=== PATIENT | male | born 1950 | race Caucasian/White ===

== ENCOUNTER 2022-11-26 19:31 | Emergency (ER) | payer MEDICARE, MEDICAID, SELFPAY ==
[2022-11-26 19:33] VITALS: BP 118/60; PULSE 78; RESP 20; TEMP 36.6; O2SAT 92; BMI 23.1
--- NOTE | 2022-11-26 19:36 | CT_ITS ---
[address] [address] Patient Name: JERMAINE JAMES MRN: [id number] date: 1950 Sex: M Assigned Patient Location: ER Current Patient Location: [facility] Accession/Order Number: [id number] Exam Date: 11/26/2022 19:40 Report Date: 11/26/2022 21:32 At the request of: LASHELL CRUZ Procedure: CT head/brain wo con EXAM: CT head/brain wo con, CT cervical spine wo con; [id number], [id number] REASON FOR EXAM: fall, head injury COMPARISON: CT head and C-spine 10/29/2022. TECHNIQUE: Axial CT images of the head obtained without contrast. Following this, helical CT images of the cervical spine were obtained without contrast. Multiplanar reformats generated at the scanner. Dose reduction technique used: Automated exposure control and/or adjustment of the mA and/or kV according to patient size and/or use of iterative reconstruction technique. HEAD CT FINDINGS: Parenchyma: -Moderate generalized cerebral volume loss. -No midline shift or mass effect. Basilar cisterns are patent. -No acute intracranial hemorrhage. No loss of cortical velarde-white differentiation to indicate acute cortical infarct. -Moderate multifocal and bilateral periventricular white matter predominant hypoattenuation, nonspecific though commonly seen in the setting of chronic microvascular ischemic disease. Extra-axial spaces: Within expected limits given degree of cerebral volume loss. Ventricles: Normal in size and symmetric. Paranasal sinuses: Chronic sinusitis of the left maxillary sinus. Partial opacification of bilateral ethmoid air cells. Mastoid air cells: Visualized mastoids are clear. Orbits: Visualized orbits are within normal limits. Osseous: No acute findings. Soft tissues: No acute abnormality. CERVICAL SPINE FINDINGS: Osseous: -No acute fracture or traumatic spondylolisthesis. -Severe spondylosis and severe bilateral facet arthropathy throughout the cervical spine. -No suspicious osseous lesion. Paraspinous soft tissues: -No acute abnormality. Visualized lung apices: -Clear. -No pneumothorax within the [id number]. IMPRESSION: 1. No acute intracranial abnormality. 2. No acute traumatic abnormality of the cervical spine. Electronically authenticated by: KOKI DE SANTIAGO Date: 11/26/2022 21:32
--- NOTE | 2022-11-26 19:36 | CT_ITS ---
The [address] [address] Patient Name: JERMAINE JAMES MRN: [id number] date: 1950 Sex: M Assigned Patient Location: ED.MAIN Current Patient Location: ED.MAIN Accession/Order Number: [id number] Exam Date: 11/26/2022 19:40 Report Date: 11/26/2022 21:32 At the request of: LASHELL CRUZ Procedure: CT cervical spine wo con EXAM: CT head/brain wo con, CT cervical spine wo con; [id number], [id number] REASON FOR EXAM: fall, head injury COMPARISON: CT head and C-spine 10/29/2022. TECHNIQUE: Axial CT images of the head obtained without contrast. Following this, helical CT images of the cervical spine were obtained without contrast. Multiplanar reformats generated at the scanner. Dose reduction technique used: Automated exposure control and/or adjustment of the mA and/or kV according to patient size and/or use of iterative reconstruction technique. HEAD CT FINDINGS: Parenchyma: -Moderate generalized cerebral volume loss. -No midline shift or mass effect. Basilar cisterns are patent. -No acute intracranial hemorrhage. No loss of cortical velarde-white differentiation to indicate acute cortical infarct. -Moderate multifocal and bilateral periventricular white matter predominant hypoattenuation, nonspecific though commonly seen in the setting of chronic microvascular ischemic disease. Extra-axial spaces: Within expected limits given degree of cerebral volume loss. Ventricles: Normal in size and symmetric. Paranasal sinuses: Chronic sinusitis of the left maxillary sinus. Partial opacification of bilateral ethmoid air cells. Mastoid air cells: Visualized mastoids are clear. Orbits: Visualized orbits are within normal limits. Osseous: No acute findings. Soft tissues: No acute abnormality. CERVICAL SPINE FINDINGS: Osseous: -No acute fracture or traumatic spondylolisthesis. -Severe spondylosis and severe bilateral facet arthropathy throughout the cervical spine. -No suspicious osseous lesion. Paraspinous soft tissues: -No acute abnormality. Visualized lung apices: -Clear. -No pneumothorax within the [id number]. IMPRESSION: 1. No acute intracranial abnormality. 2. No acute traumatic abnormality of the cervical spine. Electronically authenticated by: KOKI DE SANTIAGO Date: 11/26/2022 21:32
--- NOTE | 2022-11-26 19:36 | XR_ITS ---
[place] [id number] Patient Name: JERMAINE JAMES MRN: [id number] date: 1950 Sex: M Assigned Patient Location: ER Current Patient Location: ER Accession/Order Number: [id number] Exam Date: 11/26/2022 19:40 Report Date: 11/26/2022 21:34 At the request of: LASHELL CRUZ Procedure: XR knee KENN 4V STUDY: XR knee KENN 4V, [id number] HISTORY: pain s/p fall COMPARISON: None FINDINGS: No acute fracture, dislocation, or suspicious osseous lesion. Severe osteoarthritis of both knees, left greater than right. Status post ORIF of the left distal femur. No significant effusion in either knee. IMPRESSION: No acute osseous abnormality. Electronically authenticated by: KOKI DE SANTIAGO Date: 11/26/2022 21:34
--- NOTE | 2022-11-26 19:59 | ED_ITS ---
Documented by User: KRANTHI Garcia 11/26/22 20:04 HPI - General Adult General Chief complaint: Fall Stated complaint: FALL Time Seen by Provider: 11/26/22 19:36 Source: caregiver Mode of arrival: ambulance Limitations: no limitations History of Present Illness HPI narrative: Patient is a 72-year-old male presents to the Emergency Room via EMS for evaluation of right knee pain and possible head injury. Patient presents from skilled facility where he is in a dementia unit. The facility staff notes that he is acting at his baseline but believe he had a fall around dinnertime str iking his right knee. Patient has various bruises noted to the bilateral knees and forehead with appears to be a new deepthi on the forehead from recent fall. No open skin or bleeding. Patient talkative foreign c-collar in no distress. Alert to name. Related Data Home Medications Medication Instructions Recorded Confirmed acetaminophen 500 mg capsule 1,000 mg PO Q4H PRN fever or pain 11/26/22 11/26/22 atorvastatin 10 mg tablet (Lipitor) 10 mg PO DAILY 11/26/22 11/26/22 buspirone 30 mg tablet 30 mg PO BID 11/26/22 11/26/22 clomipramine 50 mg capsule 50 mg PO BID 11/26/22 11/26/22 (Anafranil) divalproex 500 mg tablet,delayed 500 mg PO BID 11/26/22 11/26/22 release (Depakote) duloxetine 20 mg capsule,delayed 20 mg PO DAILY 11/26/22 11/26/22 release duloxetine 30 mg capsule,delayed 30 mg PO DAILY 11/26/22 11/26/22 release (Cymbalta) hyoscyamine sulfate 0.125 mg 0.125 mg PO Q6H 11/26/22 11/26/22 tablet (Levsin) levetiracetam 1,000 mg tablet 1,000 mg PO BID 11/26/22 11/26/22 (Keppra) lorazepam 1 mg tablet 1 mg PO Q8H PRN anxiety 11/26/22 11/26/22 losartan 50 mg tablet (Cozaar) 50 mg PO DAILY 11/26/22 11/26/22 lumateperone 42 mg capsule 42 mg PO DAILY 11/26/22 11/26/22 (Caplyta) morphine 20 mg/5 mL (4 mg/mL) oral 7.5 mg PO Q6H PRN pain 11/26/22 11/26/22 solution pantoprazole 40 mg tablet,delayed 40 mg PO DAILY 11/26/22 11/26/22 release (Protonix) sertraline 100 mg tablet (Zoloft) 100 mg PO DAILY 11/26/22 11/26/22 Allergies Allergy/AdvReac Type Severity Reaction Status Date / Time No Known Drug Allergies Allergy Verified 11/26/22 19:39 Review of Systems ROS Narrative Unable to assess with patient's history of dementia Status of ROS unobtainable due to mental status Exam Narrative Exam Narrative: Nurses note and vital signs reviewed and patient is not hypoxic. General: The patient appears well and in no apparent distress. Patient is resting comfortably on cart. C-collar present Skin: Warm, dry, no pallor noted. Transverse abrasion to forehead without evidence of bleeding. Minimal swelling Head: Normocephalic, atraumatic Neck: Supple, trachea mid-line, no tenderness, no lymphadenopathy. Full ROM and no cervical spinal tenderness. The patient has no step-offs or crepitus noted, c-collar well fitting Eyes: PERRLA, EOMI ENT: TM's clear, no hemotympanum detected, no blood in posterior oropharynx Cardiovascular: Regular Rate and Rhythm Respiratory: Patient is in no distress, no accessory muscle use, lungs are clear to auscultation, no wheezing, rales or rhonchi Chest Wall: no tenderness, no flail chest, contusion, abrasion, or signs of trauma. Back: Back has no evidence of trauma, including contusion, abrasion, swelling or ecchymosis. The patient had no evidence of step-offs or creptitace noted. No tenderness to palpation. Negative straight leg raise bilaterally. Musculoskeletal: normal ROM, tenderness noted to the right anterior knee, mild bruising noted, symmetric bruising noted to the left anterior knee. Patient demonstrates fairly painless passive range of motion with straight leg raise intact bilaterally , no hip pain noted., no swelling. Pulses at femoral, DP, PT, and popiteal were 2+ bilaterally. Moves all four extremities in all modalities with roughly 5/5 strength. Difficulty assessing true strength with patient following commands GI: Normal bowel sounds, no tenderness to palpation, no masses appreciated. No rebound, guarding, or rigidity noted. Neurological: A&O person , normal equal inspector multifocal lens strength, Psychiatric: Cooperative Constitutional Vital Signs - 24 hr 11/26/22 19:33 Temperature 97.8 F Pulse Rate [Monitor] 78 Respiratory Rate 20 Blood Pressure [Right Arm] 118/60 Pulse Oximetry 92 L Oxygen Delivery Method Room Air Course Vital Signs Vital signs: Vital Signs Temperature 97.8 F 11/26/22 19:33 Pulse Rate 78 11/26/22 19:33 Respiratory Rate 20 11/26/22 19:33 Blood Pressure 118/60 11/26/22 19:33 Pulse Oximetry 92 L 11/26/22 19:33 Oxygen Delivery Method Room Air 11/26/22 19:33 Temperature 97.8 F 11/26/22 19:33 Pulse Rate 78 11/26/22 19:33 Respiratory Rate 20 11/26/22 19:33 Blood Pressure 118/60 11/26/22 19:33 Pulse Oximetry 92 L 11/26/22 19:33 Oxygen Delivery Method Room Air 11/26/22 19:33 Medical Decision Making [facility] Narrative Medical decision making narrative: Patient presents via EMS for skilled facility's concern of right knee pain. Patient has various bruising to the bilateral knees noted, bruising noted to the forearm with what appears to be a fresh transverse marker abrasion. No open skin wound. No report of recent illness or fever. No mention of any seizure-like activity. Patient will undergo CT of the head and C-spine, along with bilateral knee x-rays. Discharge Plan Discharge Chief Complaint: Fall Clinical Impression: Closed head injury, Contusion of knee, left, Contusion of knee, right Patient Disposition: Home, Self-Care Time of Disposition Decision: 21:40 Prescriptions / Home Meds: No Action acetaminophen 500 mg capsule 1,000 mg PO Q4H PRN (Reason: fever or pain) clomipramine [Anafranil] 50 mg capsule 50 mg PO BID buspirone 30 mg tablet 30 mg PO BID Caplyta 42 mg capsule 42 mg PO DAILY Patient Comments: M,,W,,Sun,Sat losartan [Cozaar] 50 mg tablet 50 mg PO DAILY duloxetine [Cymbalta] 30 mg capsule,delayed release(DR/EC) 30 mg PO DAILY divalproex [Depakote] 500 mg tablet,delayed release (DR/EC) 500 mg PO BID duloxetine 20 mg capsule,delayed release(DR/EC) 20 mg PO DAILY levetiracetam [Keppra] 1,000 mg tablet 1,000 mg PO BID hyoscyamine sulfate [Levsin] 0.125 mg tablet 0.125 mg PO Q6H atorvastatin [Lipitor] 10 mg tablet 10 mg PO DAILY lorazepam 1 mg tablet 1 mg PO Q8H PRN (Reason: anxiety) morphine 20 mg/5 mL (4 mg/mL) solution 7.5 mg PO Q6H PRN (Reason: pain) pantoprazole [Protonix] 40 mg tablet,delayed release (DR/EC) 40 mg PO DAILY sertraline [Zoloft] 100 mg tablet 100 mg PO DAILY Instructions: Head Injury (ED), Knee Pain (ED) Stand Alone Forms: Portal Instructions Referrals: [facility] [Other] - 1 week Documented by User: Ernesto Acevedo 11/26/22 21:42 HPI - General Adult General Chief complaint: Fall Stated complaint: FALL Time Seen by Provider: 11/26/22 19:36 Related Data Home Medications Medication Instructions Recorded Confirmed acetaminophen 500 mg capsule 1,000 mg PO Q4H PRN fever or pain 11/26/22 11/26/22 atorvastatin 10 mg tablet (Lipitor) 10 mg PO DAILY 11/26/22 11/26/22 buspirone 30 mg tablet 30 mg PO BID 11/26/22 11/26/22 clomipramine 50 mg capsule 50 mg PO BID 11/26/22 11/26/22 (Anafranil) divalproex 500 mg tablet,delayed 500 mg PO BID 11/26/22 11/26/22 release (Depakote) duloxetine 20 mg capsule,delayed 20 mg PO DAILY 11/26/22 11/26/22 release duloxetine 30 mg capsule,delayed 30 mg PO DAILY 11/26/22 11/26/22 release (Cymbalta) hyoscyamine sulfate 0.125 mg 0.125 mg PO Q6H 11/26/22 11/26/22 tablet (Levsin) levetiracetam 1,000 mg tablet 1,000 mg PO BID 11/26/22 11/26/22 (Keppra) lorazepam 1 mg tablet 1 mg PO Q8H PRN anxiety 11/26/22 11/26/22 losartan 50 mg tablet (Cozaar) 50 mg PO DAILY 11/26/22 11/26/22 lumateperone 42 mg capsule 42 mg PO DAILY 11/26/22 11/26/22 (Caplyta) morphine 20 mg/5 mL (4 mg/mL) oral 7.5 mg PO Q6H PRN pain 11/26/22 11/26/22 solution pantoprazole 40 mg tablet,delayed 40 mg PO DAILY 11/26/22 11/26/22 release (Protonix) sertraline 100 mg tablet (Zoloft) 100 mg PO DAILY 11/26/22 11/26/22 Allergies Allergy/AdvReac Type Severity Reaction Status Date / Time No Known Drug Allergies Allergy Verified 11/26/22 19:39 Exam Constitutional Vital Signs - 24 hr 11/26/22 19:33 Temperature 97.8 F Pulse Rate [Monitor] 78 Respiratory Rate 20 Blood Pressure [Right Arm] 118/60 Pulse Oximetry 92 L Oxygen Delivery Method Room Air Course Vital Signs Vital signs: Vital Signs Temperature 97.8 F 11/26/22 19:33 Pulse Rate 78 11/26/22 19:33 Respiratory Rate 20 11/26/22 19:33 Blood Pressure 118/60 11/26/22 19:33 Pulse Oximetry 92 L 11/26/22 19:33 Oxygen Delivery Method Room Air 11/26/22 19:33 Temperature 97.8 F 11/26/22 19:33 Pulse Rate 78 11/26/22 19:33 Respiratory Rate 20 11/26/22 19:33 Blood Pressure 118/60 11/26/22 19:33 Pulse Oximetry 92 L 11/26/22 19:33 Oxygen Delivery Method Room Air 11/26/22 19:33 Medical Decision Making MDM Narrative Medical decision making narrative: Patient presents via EMS for skilled facility's concern of right knee pain. Patient has various bruising to the bilateral knees noted, bruising noted to the forearm with what appears to be a fresh transverse marker abrasion. No open skin wound. No report of recent illness or fever. No mention of any seizure-like activity. Patient will undergo CT of the head and C-spine, along with bilateral knee x-rays. attending physician note - I saw and examined this patient and agree with the APCs findings. CT scanning of the head and cervical spine were without acute pathology, per radiologist. X-rays of both knees were reviewed by me and the radiologist's interpretation agrees with my which is that there is no acute fracture or other worrisome pathology. Patient was discharged back to the [facility]. - Sujit DO For this patient encounter I reviewed the mid-level provider?s documentation, m edical decision-making and treatment plan, and I personally spent time with this patient. Shared APC visit, physician attestation: [id number]: This visit was performed by both a physician and an APC. I personally evaluated and examined the patient. I performed all aspects of MDM as documented. - DO Sujit Imaging Data CT scan - head: My impression: ct head and ct cspine rad reading noted below Radiologist's impression: Patient Name: JERMAINE JAMES MRN: [id number] date: 1950 Sex: M Assigned Patient Location: ER Current Patient Location: ED.MAIN Accession/Order Number: [id number] Exam Date: 11/26/2022 19:40 Report Date: 11/26/2022 21:32 At the request of: LASHELL CRUZ Procedure: CT head/brain wo con EXAM: CT head/brain wo con, CT cervical spine wo con; [id number], [id number] REASON FOR EXAM: fall, head injury COMPARISON: CT head and C-spine 10/29/2022. TECHNIQUE: Axial CT images of the head obtained without contrast. Following this, helical CT images of the cervical spine were obtained without contrast. Multiplanar reformats generated at the scanner. Dose reduction technique used: Automated exposure control and/or adjustment of the mA and/or kV according to patient size and/or use of iterative reconstruction technique. HEAD CT FINDINGS: Parenchyma: -Moderate generalized cerebral volume loss. -No midline shift or mass effect. Basilar cisterns are patent. -No acute intracranial hemorrhage. No loss of cortical velarde-white differentiation to indicate acute cortical infarct. -Moderate multifocal and bilateral periventricular white matter predominant hypoattenuation, nonspecific though commonly seen in the setting of chronic microvascular ischemic disease. Extra-axial spaces: Within expected limits given degree of cerebral volume loss. Ventricles: Normal in size and symmetric. Paranasal sinuses: Chronic sinusitis of the left maxillary sinus. Partial opacification of bilateral ethmoid air cells. Mastoid air cells: Visualized mastoids are clear. Orbits: Visualized orbits are within normal limits. Osseous: No acute findings. Soft tissues: No acute abnormality. CERVICAL SPINE FINDINGS: Osseous: -No acute fracture or traumatic spondylolisthesis. -Severe spondylosis and severe bilateral facet arthropathy throughout the cervical spine. -No suspicious osseous lesion. Paraspinous soft tissues: -No acute abnormality. Visualized lung apices: -Clear. -No pneumothorax within the [id number]. IMPRESSION: 1. No acute intracranial abnormality. 2. No acute traumatic abnormality of the cervical spine. Electronically authenticated by: KOKI DE SANTIAGO Date: 11/26/2022 21:32 xr knee: Attestation: I have reviewed the pertinent imaging results. Radiologist's impression: MRN: [facility]:[id number] date: 1950 Sex: M Assigned Patient Location: ER Current Patient Location: ER Accession/Order Number: [id number] Exam Date: 11/26/2022 19:40 Report Date: 11/26/2022 21:34 At the request of: LASHELL CRUZ Procedure: XR knee KENN 4V STUDY: XR knee KENN 4V, [id number] HISTORY: pain s/p fall COMPARISON: None FINDINGS: No acute fracture, dislocation, or suspicious osseous lesion. Severe osteoarthritis of both knees, left greater than right. Status post ORIF of the left distal femur. No significant effusion in either knee. IMPRESSION: No acute osseous abnormality. Electronically authenticated by: KOKI DE SANTIAGO Date: 11/26/2022 21:34 Discharge Plan Discharge Chief Complaint: Fall Clinical Impression: Closed head injury, Contusion of knee, left, Contusion of knee, right Patient Disposition: Home, Self-Care Time of Disposition Decision: 21:40 Prescriptions / Home Meds: No Action acetaminophen 500 mg capsule 1,000 mg PO Q4H PRN (Reason: fever or pain) clomipramine [Anafranil] 50 mg capsule 50 mg PO BID buspirone 30 mg tablet 30 mg PO BID Caplyta 42 mg capsule 42 mg PO DAILY Patient Comments: M,,W,,Sun,Sat losartan [Cozaar] 50 mg tablet 50 mg PO DAILY duloxetine [Cymbalta] 30 mg capsule,delayed release(DR/EC) 30 mg PO DAILY divalproex [Depakote] 500 mg tablet,delayed release (DR/EC) 500 mg PO BID duloxetine 20 mg capsule,delayed release(DR/EC) 20 mg PO DAILY levetiracetam [Keppra] 1,000 mg tablet 1,000 mg PO BID hyoscyamine sulfate [Levsin] 0.125 mg tablet 0.125 mg PO Q6H atorvastatin [Lipitor] 10 mg tablet 10 mg PO DAILY lorazepam 1 mg tablet 1 mg PO Q8H PRN (Reason: anxiety) morphine 20 mg/5 mL (4 mg/mL) solution 7.5 mg PO Q6H PRN (Reason: pain) pantoprazole [Protonix] 40 mg tablet,delayed release (DR/EC) 40 mg PO DAILY sertraline [Zoloft] 100 mg tablet 100 mg PO DAILY Instructions: Head Injury (ED), Knee Pain (ED) Stand Alone Forms: Portal Instructions Referrals: [facility] [Other] - 1 week
== END 2022-11-26 22:59 | disposition home or self-care (01) ==
PROVIDERS: Emergency Provider Emergency Medicine
DX: S80.02XA Contusion of left knee, initial encounter (principal); S80.01XA Contusion of right knee, initial encounter; S09.8XXA Other specified injuries of head, initial encounter; W19.XXXA Unspecified fall, initial encounter; Z79.899 Other long term (current) drug therapy; F03.90 Unspecified dementia, unspecified severity, without behavioral disturbance, psychotic disturbance, mood disturbance, and anxiety
CPT/HCPCS: 70450; 72125; 73564; 99284

== ENCOUNTER 2023-01-20 21:59 | Emergency (ER) | payer MEDICARE, MEDICAID, SELFPAY ==
[2023-01-20 22:03] VITALS: BP 136/84; PULSE 88; RESP 18; TEMP 36.2; O2SAT 97
--- NOTE | 2023-01-20 22:05 | PC.NURSE ---
patient arrives via EMS from [facility]. nursing staff states patient was sitting at nurses station with patient and nurse walked away when she returned patient was in the same position unchanged but she noticed a laceration above left eyebrow. patient does not take blood thinners. patient with history of dementia, nursing staff states patient is at his baseline mental status. patient arrives pleasant, talking to RN, laceration wrapped by EMS staff with no active bleeding observed at this time.
--- NOTE | 2023-01-20 22:09 | ED.WOUNDLAC1 ---
HPI - Wound/Laceration General Chief Complaint: Wound/Laceration Stated Complaint: FACIAL LACERATION Time Seen by Provider: 01/20/23 22:09 Source: patient and other Source comment: squad Mode of arrival: ambulance History of Present Illness HPI narrative: Patient brought in via EMS closed head injury. Patient had a not witnessed fall at the [facility]. He sustained a left frontal laceration. Patient has a history of dementia and frequent falls. Does not take any blood thinners. The patient is at his baseline. Patient does not have any complaints. Patient has not been vomiting, denies any diarrhea. He denies any chest, shortness of breath. He denies any neck pain. He denies any abdominal pain or back pain. Related Data Home Medications Medication Instructions Recorded Confirmed acetaminophen 500 mg capsule 1,000 mg PO Q4H PRN fever or pain 11/26/22 11/26/22 atorvastatin 10 mg tablet (Lipitor) 10 mg PO DAILY 11/26/22 11/26/22 buspirone 30 mg tablet 30 mg PO BID 11/26/22 11/26/22 clomipramine 50 mg capsule 50 mg PO BID 11/26/22 11/26/22 (Anafranil) divalproex 500 mg tablet,delayed 500 mg PO BID 11/26/22 11/26/22 release (Depakote) duloxetine 20 mg capsule,delayed 20 mg PO DAILY 11/26/22 11/26/22 release duloxetine 30 mg capsule,delayed 30 mg PO DAILY 11/26/22 11/26/22 release (Cymbalta) hyoscyamine sulfate 0.125 mg 0.125 mg PO Q6H 11/26/22 11/26/22 tablet (Levsin) levetiracetam 1,000 mg tablet 1,000 mg PO BID 11/26/22 11/26/22 (Keppra) lorazepam 1 mg tablet 1 mg PO Q8H PRN anxiety 11/26/22 11/26/22 losartan 50 mg tablet (Cozaar) 50 mg PO DAILY 11/26/22 11/26/22 lumateperone 42 mg capsule 42 mg PO DAILY 11/26/22 11/26/22 (Caplyta) morphine 20 mg/5 mL (4 mg/mL) oral 7.5 mg PO Q6H PRN pain 11/26/22 11/26/22 solution pantoprazole 40 mg tablet,delayed 40 mg PO DAILY 11/26/22 11/26/22 release (Protonix) sertraline 100 mg tablet (Zoloft) 100 mg PO DAILY 11/26/22 11/26/22 Allergies Allergy/AdvReac Type Severity Reaction Status Date / Time No Known Drug Allergies Allergy Verified 01/20/23 22:08 Review of Systems ROS Status of ROS 10 or more systems reviewed and unremarkable except as noted in history and below [facility] Social History Smoking status: Former smoker Exam Narrative Exam Narrative: Nurses notes and vital signs reviewed and patient is not hypoxic. General: Nontoxic, Elderly, chronically ill, in no apparent distress. Skin: Warm, dry, mild pallor noted. No Rash Head: Normocephalic, 2 cm left eyebrow laceration with 2 mm of gaping, no active bleeding. No step-offs. Neck: Supple, non-tender. Eye: Pupils are equal, round and EOMI. No scleral icterus. Ears, Nose, Mouth, and Throat: TM clear, no posterior oropharynx erythema or nasal mucosal hypertrophy, uvula is mid-line Oral mucosa is moist Cardiovascular: Regular Rate and Rhythm without murmur, gallop or rub. Respiratory: No accessory muscle use or respiratory distress. Lungs are clear to auscultation, no wheezing, rales or rhonchi Chest Wall: no tenderness Back: No midline thoracic or lumbar vertebral tenderness. No CVA tenderness Musculoskeletal: 1 cm skin. To the left lateral elbow, full range of motion, no bony tenderness. Distal neurovascularly intact. normal ROM, no calf or popliteal tenderness, no lower extremity edema/swelling GI: Abdomen is soft, non-distended. Normal bowel sounds. No masses appreciated. No tenderness to palpation. No rebound, guarding, or rigidity noted. Neurological: A&O x1. No cranial nerve dysfunction observed. Moves all extremities. Sensation intact. Psychiatric: Cooperative Constitutional Vital Signs, click to edit/add: Last Vital Signs Temp 97.1 F L 01/20/23 22:03 Pulse 76 01/21/23 00:25 Resp 16 01/21/23 00:25 BP 136/84 01/20/23 22:03 Pulse Ox 97 01/21/23 00:25 O2 Del Method Room Air 01/20/23 22:03 Course Vital Signs Vital signs: Vital Signs Temperature 97.1 F L 01/20/23 22:03 Pulse Rate 88 01/20/23 22:03 Respiratory Rate 18 01/20/23 22:03 Blood Pressure 136/84 01/20/23 22:03 Pulse Oximetry 97 01/20/23 22:03 Oxygen Delivery Method Room Air 01/20/23 22:03 Temperature 97.1 F L 01/20/23 22:03 Pulse Rate 76 01/21/23 00:25 Respiratory Rate 16 01/21/23 00:25 Blood Pressure 136/84 01/20/23 22:03 Pulse Oximetry 97 01/21/23 00:25 Oxygen Delivery Method Room Air 01/20/23 22:03 MDM - Wound/Laceration MDM Narrative Medical decision making narrative: CT scan of the brain and C-spine were done and are unremarkable. Laceration repair. The patient was identified by me. Procedure risks and benefits were discussed with patient and/or family. Area was prepped and draped in a sterile fashion. wound was inspected in full range of motion. Dermabond was applied with Steri-Strips. The edges were well approximated. At this time the patient is without objective evidence of an acute process requiring hospitalization or inpatient management. The patient has remained hemodynamically stable. No additional indication for emergent studies at this time. This note was created with the assistance of a speech recognition program. Although the intention is to generate documents that actually reflects the content of the visit, no guarantees can be provided that every mistake has been identified and corrected by editing. Differential Diagnosis Differential diagnosis: Likely laceration Discharge Plan Discharge Chief Complaint: Wound/Laceration Clinical Impression: Closed head injury, Skin tear of left elbow without complication, Laceration of eyebrow, left Patient Disposition: Home, Self-Care Time of Disposition Decision: 00:05 Condition: Good Mode of Transportation: EMS Prescriptions / Home Meds: No Action acetaminophen 500 mg capsule 1,000 mg PO Q4H PRN (Reason: fever or pain) clomipramine [Anafranil] 50 mg capsule 50 mg PO BID buspirone 30 mg tablet 30 mg PO BID Caplyta 42 mg capsule 42 mg PO DAILY Patient Comments: M,,W,Th,Fri,Sat losartan [Cozaar] 50 mg tablet 50 mg PO DAILY duloxetine [Cymbalta] 30 mg capsule,delayed release(DR/EC) 30 mg PO DAILY divalproex [Depakote] 500 mg tablet,delayed release (DR/EC) 500 mg PO BID duloxetine 20 mg capsule,delayed release(DR/EC) 20 mg PO DAILY levetiracetam [Keppra] 1,000 mg tablet 1,000 mg PO BID hyoscyamine sulfate [Levsin] 0.125 mg tablet 0.125 mg PO Q6H atorvastatin [Lipitor] 10 mg tablet 10 mg PO DAILY lorazepam 1 mg tablet 1 mg PO Q8H PRN (Reason: anxiety) morphine 20 mg/5 mL (4 mg/mL) solution 7.5 mg PO Q6H PRN (Reason: pain) pantoprazole [Protonix] 40 mg tablet,delayed release (DR/EC) 40 mg PO DAILY sertraline [Zoloft] 100 mg tablet 100 mg PO DAILY Instructions: Head Injury (ED), Skin Adhesive Care (ED), Steristrips (ED) Stand Alone Forms: Portal Instructions
--- NOTE | 2023-01-20 22:30 | CT_ITS ---
The [address] [address] Patient Name: JERMAINE JAMES MRN: [id number] date: 1950 Sex: M Assigned Patient Location: ER Current Patient Location: ER Accession/Order Number: [id number] Exam Date: 01/20/2023 22:40 Report Date: 01/20/2023 23:48 At the request of: RAINE WALTERS Procedure: CT head/brain wo con EXAMINATION: CT head/brain wo con, , 01/20/2023 10:40 PM EDT INDICATION: Laceration to the left upper eye HISTORY: Ordering Provider Reason for Exam: chi Technologist Note: Additional: COMPARISON: Head CT dated 11/26/2022. TECHNIQUE: CT scan of the head was performed without IV contrast. CT dose reduction technique was used, including Automated Exposure Control. FINDINGS: Proportionate appearance of the ventricles and sulci is seen, suggestive of cortical atrophy. Mild degree nonspecific white matter hypoattenuation is seen, which can be seen with chronic microvascular ischemic changes. No extra-axial collection. No intracranial hemorrhage. No mass effect or edema. No CT evidence of large territorial infarction. Visualized paranasal sinuses are well aerated. Mastoids are clear. Calvarium is unremarkable. Left supraorbital/forehead soft tissue swelling is seen with small subcutaneous gas consistent with reported laceration. CT/CT head/brain wo con IMPRESSION: No intracranial hemorrhage or mass effect. Left supraorbital/forehead soft tissue swelling is seen with small subcutaneous gas consistent with reported laceration. Electronically authenticated by: NGOC SZYMANSIK Date: 01/20/2023 23:48
--- NOTE | 2023-01-20 22:31 | CT_ITS ---
The [address] [address] Patient Name: JERMAINE JAMES MRN: [id number] date: 1950 Sex: M Assigned Patient Location: ER Current Patient Location: Accession/Order Number: [id number] Exam Date: 01/20/2023 22:40 Report Date: 01/20/2023 23:56 At the request of: RAINE WALTERS Procedure: CT cervical spine wo con EXAM: CT cervical spine wo con HISTORY: fall COMPARISON: CT cervical spine examination dated 11/26/2022. TECHNIQUE: Noncontrast axial CT images through the cervical spine were obtained with coronal and sagittal reformats. Dose reduction techniques were achieved by using automated exposure control and/or adjustment of mA and/or kV according to patient size and/or use of iterative reconstruction technique. FINDINGS: An incidental note is made of incomplete fusion of the posterior arch of C1. No acute fracture or subluxation is seen. The vertebral body heights are preserved. There is approximately 2 mm of C5 on C6 retrolisthesis which is felt to be due to degenerative changes. Otherwise, the vertebral elements are in anatomic alignment. The prevertebral soft tissues are unremarkable. There is advanced degenerative disc disease at C2-C3, C4-C5, C5-C6, C6-C7, and C7-T1. There are multilevel degenerative changes including endplate osteophytes, degenerative facet arthropathy, and uncovertebral hypertrophy. There is at least mild right neural foraminal narrowing at C3-C4 secondary to uncovertebral hypertrophy and degenerative facet arthropathy. There is severe left neural foraminal narrowing at C4-C5 secondary to uncovertebral hypertrophy and degenerative facet arthropathy. There is moderate bilateral neural foraminal narrowing at C5-C6 secondary to uncovertebral hypertrophy. There is moderate to severe left and mild right neural foraminal narrowing at C6-C7 secondary to uncovertebral hypertrophy. There does not appear to be any significant spinal canal stenosis. Bilateral cervical ribs are noted. CT/CT cervical spine wo con IMPRESSION: 1. No acute fracture or subluxation of the cervical spine is seen. Electronically authenticated by: Jinny WASHINGTON Date: 01/20/2023 23:56
[2023-01-21 00:25] VITALS: PULSE 76; RESP 16; O2SAT 97
== END 2023-01-21 02:08 | disposition home or self-care (01) ==
PROVIDERS: Emergency Provider Emergency Medicine
DX: S01.112A Laceration without foreign body of left eyelid and periocular area, initial encounter (principal); S09.8XXA Other specified injuries of head, initial encounter; S51.012A Laceration without foreign body of left elbow, initial encounter; W19.XXXA Unspecified fall, initial encounter; F03.90 Unspecified dementia, unspecified severity, without behavioral disturbance, psychotic disturbance, mood disturbance, and anxiety; Z91.81 History of falling; Z79.899 Other long term (current) drug therapy; Z87.891 Personal history of nicotine dependence
CPT/HCPCS: 12011; 70450; 72125; 99284

== ENCOUNTER 2023-11-06 09:28 | Emergency (ER) | payer MEDICARE, MEDICAID, SELFPAY ==
--- NOTE | 2023-11-06 09:30 | XR_ITS ---
The [address] [address] Patient Name: JERMAINE JAMES MRN: [id number] date: 1950 Sex: M Assigned Patient Location: ED.MAIN Current Patient Location: ED.MAIN Accession/Order Number: [id number] Exam Date: 11/06/2023 09:52 Report Date: 11/06/2023 10:16 At the request of: LESTER DENISE Procedure: XR knee LT 3V PROCEDURE: XR knee LT 3V HISTORY: trauma , fall COMPARISON: XR knee bilateral 11/26/2022 FINDINGS: BONES:Prior lateral plate and screw repair of distal fibula without evidence of hardware fracture loosening. No bone fracture dislocation. Marked degenerative changes involving all 3 joint compartments. SOFT TISSUES:No visible soft tissue swelling. EFFUSION:None visible. OTHER: Negative. XR/XR knee LT 3V IMPRESSION: 1. No acute bone abnormality or evidence of hardware failure. 2. Advanced degenerative joint disease. Electronically authenticated by: SAPPHIRE DILLARD Date: 11/06/2023 10:16
--- NOTE | 2023-11-06 09:30 | CT_ITS ---
The [address] [address] Patient Name: JERMAINE JAMES MRN: [id number] date: 1950 Sex: M Assigned Patient Location: ED.MAIN Current Patient Location: Accession/Order Number: [id number] Exam Date: 11/06/2023 09:52 Report Date: 11/06/2023 10:22 At the request of: LESTER DENISE Procedure: CT head/brain wo con EXAM: CT head/brain wo con HISTORY: trauma history of fall. COMPARISON: CT head 01/20/2023. TECHNIQUE: Axial soft tissue and bone windows through the calvarium with coronal and sagittal reformats. Findings: No depressed or calvarial fracture. There is complete opacification the left maxillary sinus with adjacent chronic osseous remodeling. There is mild opacification anterior ethmoid air cells. The remainder of the paranasal sinuses and mastoid air cells are well aerated. No air-fluid levels. No extra-axial fluid collection. No intra-axial or extra-axial bleed. No mass effect or midline shift. The velarde-white matter differentiation is preserved. There are white matter low attenuation lesions which are nonspecific but commonly attributed to chronic small vessel ischemic disease. The brain parenchymal volume is mildly reduced, yet likely age-appropriate, and there is ex vacuo dilatation of the ventricles. The basal cisterns are patent. The craniovertebral junction is unremarkable. CT/CT head/brain wo con IMPRESSION: 1. No depressed or calvarial fracture. 2. No acute intracranial bleed. Electronically authenticated by: JESÚS CEE Date: 11/06/2023 10:22
[2023-11-06 09:31] VITALS: BP 126/64; PULSE 83; TEMP 36.7; O2SAT 98; BMI 28.0
--- NOTE | 2023-11-06 09:32 | ED_ITS ---
HPI HPI - General Adult General Chief complaint: Fall Stated complaint: FALL Time Seen by Provider: 11/06/23 09:30 History of Present Illness HPI narrative: Patient presents to ED after a fall. He comes from [facility] for evaluation after a fall this morning around 8:45 AM. long term reports that he fell and it was unwitnessed but he seemed to have hit his head and there is a small red deepthi on the top of his head. They also report for about the past week he has had a more unsteady gait Than normal. He is also had a little bit more slurring of his speech than normal. He is a DNR comfort care and oriented to self which is his baseline. He does not have any complaints of pain at this time. He fell about a week ago and hurt his left knee which is bruised and the usp states that he has continued to complain about that knee pain. He was also on Xanax and they have been weaning that down in case that was making him more unsteady on his feet. They said he just has not been quite himself for the past week walking more slowly and then today they thought his speech seemed a little bit slurred Related Data Home Medications ?Medication ?Instructions ?Recorded ?Confirmed acetaminophen 500 mg capsule 1,000 mg PO Q4H PRN fever or pain 11/26/22 11/26/22 atorvastatin 10 mg tablet (Lipitor) 10 mg PO DAILY 11/26/22 11/26/22 buspirone 30 mg tablet 30 mg PO BID 11/26/22 11/26/22 clomipramine 50 mg capsule 50 mg PO BID 11/26/22 11/26/22 (Anafranil) divalproex 500 mg tablet,delayed 500 mg PO BID 11/26/22 11/26/22 release (Depakote) duloxetine 20 mg capsule,delayed 20 mg PO DAILY 11/26/22 11/26/22 release duloxetine 30 mg capsule,delayed 30 mg PO DAILY 11/26/22 11/26/22 release (Cymbalta) hyoscyamine sulfate 0.125 mg 0.125 mg PO Q6H 11/26/22 11/26/22 tablet (Levsin) levetiracetam 1,000 mg tablet 1,000 mg PO BID 11/26/22 11/26/22 (Keppra) lorazepam 1 mg tablet 1 mg PO Q8H PRN anxiety 11/26/22 11/26/22 losartan 50 mg tablet (Cozaar) 50 mg PO DAILY 11/26/22 11/26/22 lumateperone 42 mg capsule 42 mg PO DAILY 11/26/22 11/26/22 (Caplyta) morphine 20 mg/5 mL (4 mg/mL) oral 7.5 mg PO Q6H PRN pain 11/26/22 11/26/22 solution pantoprazole 40 mg tablet,delayed 40 mg PO DAILY 11/26/22 11/26/22 release (Protonix) sertraline 100 mg tablet (Zoloft) 100 mg PO DAILY 11/26/22 11/26/22 Allergies Allergy/AdvReac Type Severity Reaction Status Date / Time No Known Drug Allergies Allergy Verified 01/20/23 22:08 Opioid HPI Opioid Management Most Recent Opioid Data: Last Pain Scale 3 11/06/23 10:03 Last ED Pain Assessment 11/06/23 10:03 Review of Systems ROS Status of ROS other (ROS unable to obtain due to history of dementia) PFSH [facility] Social History Smoking status: Former smoker Exam Narrative Exam Narrative: General: alert, no acute distress, Baseline dementia alert to self only Cardiovascular: regular rate and rhythm, normal peripheral perfusion. Respiratory: Lungs CTA, respirations non labored. Extremities: no deformity, Old ecchymosis left knee. No tenderness on exam Neurological: oriented x 1, LOC appropriate for age And dementia hx Constitutional Vital Signs, click to edit/add: Last Vital Signs Temp 98.1 F 11/06/23 09:31 Pulse 83 11/06/23 09:31 Resp 18 11/06/23 09:31 BP 126/64 11/06/23 09:31 Pulse Ox 98 11/06/23 09:31 O2 Del Method Room Air 11/06/23 09:31 Course Vital Signs Vital signs: Vital Signs Temperature 98.1 F 11/06/23 09:31 Pulse Rate 83 11/06/23 09:31 Respiratory Rate 18 11/06/23 09:31 Blood Pressure 126/64 11/06/23 09:31 Pulse Oximetry 98 11/06/23 09:31 Oxygen Delivery Method Room Air 11/06/23 09:31 Temperature 98.1 F 06/04/24 09:31 Pulse Rate 83 11/06/23 09:31 Respiratory Rate 18 11/06/23 09:31 Blood Pressure 126/64 11/06/23 09:31 Pulse Oximetry 98 11/06/23 09:31 Oxygen Delivery Method Room Air 11/06/23 09:31 Medical Decision Making MDM Narrative Medical decision making narrative: Patient's knee x-ray is negative for acute. CT head negative for acute. Patient is at his baseline mentation. I feel he is appropriate to go back to his facility. Family not present at bedside at this time. Patient will be transported back to his facility Differential Diagnosis Differential Diagnosis: Intracranial hemorrhage, stroke, contusion fracture sprain strain Medical Records Medical records reviewed: Yes I reviewed the patient's medical records Imaging Data CT scan - head: Radiologist's impression: ITS Impressions Head CT 11/06/23 09:30 IMPRESSION: 1. No depressed or calvarial fracture. 2. No acute intracranial bleed. Electronically authenticated by: JESÚS CEE Date: 11/06/2023 10:22 Knee X-Ray 11/06/23 09:30 IMPRESSION: 1. No acute bone abnormality or evidence of hardware failure. 2. Advanced degenerative joint disease. Electronically authenticated by: SAPPHIRE DILLARD Date: 11/06/2023 10:16 Discharge Plan Discharge Stand Alone Forms: Portal Instructions Chief Complaint: Fall Clinical Impression: Closed head injury, Contusion of knee, left Patient Disposition: Home, Self-Care Time of Disposition Decision: 10:29 Mode of Transportation: EMS Prescriptions / Home Meds: No Action acetaminophen 500 mg capsule 1,000 mg PO Q4H PRN (Reason: fever or pain) clomipramine [Anafranil] 50 mg capsule 50 mg PO BID buspirone 30 mg tablet 30 mg PO BID Caplyta 42 mg capsule 42 mg PO DAILY Patient Comments: M,,W,Th,Fri,Sat losartan [Cozaar] 50 mg tablet 50 mg PO DAILY duloxetine [Cymbalta] 30 mg capsule,delayed release(DR/EC) 30 mg PO DAILY divalproex [Depakote] 500 mg tablet,delayed release (DR/EC) 500 mg PO BID duloxetine 20 mg capsule,delayed release(DR/EC) 20 mg PO DAILY levetiracetam [Keppra] 1,000 mg tablet 1,000 mg PO BID hyoscyamine sulfate [Levsin] 0.125 mg tablet 0.125 mg PO Q6H atorvastatin [Lipitor] 10 mg tablet 10 mg PO DAILY lorazepam 1 mg tablet 1 mg PO Q8H PRN (Reason: anxiety) morphine 20 mg/5 mL (4 mg/mL) solution 7.5 mg PO Q6H PRN (Reason: pain) pantoprazole [Protonix] 40 mg tablet,delayed release (DR/EC) 40 mg PO DAILY sertraline [Zoloft] 100 mg tablet 100 mg PO DAILY Print Language: Czech Instructions: Head Injury (ED), Contusion in Adults (ED) Referrals: Physician,Non-Staff, MD [Primary Care Provider] - 1 week
== END 2023-11-06 12:17 | disposition home or self-care (01) ==
PROVIDERS: Emergency Provider Emergency Medicine
DX: S09.8XXA Other specified injuries of head, initial encounter (principal); S80.02XA Contusion of left knee, initial encounter; W19.XXXA Unspecified fall, initial encounter; Z79.899 Other long term (current) drug therapy; Z66 Do not resuscitate
CPT/HCPCS: 70450; 73562; 99284

== ENCOUNTER 2023-11-13 09:25 | Emergency (ER) | payer MEDICARE, MEDICAID, SELFPAY ==
[2023-11-13 09:27] VITALS: BP 166/86; PULSE 87; TEMP 37.1; O2SAT 98; BMI 20.3
--- NOTE | 2023-11-13 09:32 | PC.NURSE ---
patient from [facility]. staff reports patient choked on grits this morning, not first time per staff, and they struck him on the back until he vomited up the grits. patient noted to be coughing, patient has baseline dementia, only oriented to self sometimes per staff. patient unable to follow directions to spit out what he is coughing up. EMS states patient had oxygen saturation of 97% upon their arrival to facility. Security at bedside to help keep patient redirected to stay in bed as he is continually attempting to get out.
--- NOTE | 2023-11-13 09:33 | XR_ITS ---
The [address] [address] Patient Name: JERMAINE JAMES MRN: [id number] date: 1950 Sex: M Assigned Patient Location: ED.MAIN Current Patient Location: ER Accession/Order Number: [id number] Exam Date: 11/13/2023 09:48 Report Date: 11/13/2023 10:18 At the request of: MITZY DUVALL Procedure: XR chest 1V EXAM: XR chest 1V HISTORY: Shortness of breath. COMPARISON: Portable chest radiograph dated 08/02/2022. TECHNIQUE: AP erect portable chest radiograph performed. FINDINGS: The heart size is within normal limits. There is stable mild atheromatous calcification at the aortic arch. Hilar shadows are unremarkable. There is mild patchy density at both lung bases suggesting atelectasis and/or infiltrate. There is no pleural effusion or pulmonary vascular congestion. There is no pneumothorax or acute osseous abnormality. There are chronic tears of both rotator cuffs. XR/XR chest 1V IMPRESSION: Mild patchy density at both lung bases suggesting atelectasis and/or infiltrates. Electronically authenticated by: RUBY CHU Date: 11/13/2023 10:18
--- OUTSIDE RECORDS SUMMARY | 2023-11-13 09:52 | XMS_ITS | CCD ---
Author Organization [facility] Care Team Providers Care Machine Compositor Name Role Phone ELIF, PERLAS Admitting Unavailable RENNO, ANAS Attending Unavailable SELF, REFERRED Referring Unavailable SELF, REFERRED Primary Care Unavailable RENENRICO, ANAS Surgeon Unavailable OR Procedure Practitioner Unavailab le OR Procedure Practitioner Unavailab le JOSE RAMON OSCAR Surgeon Unavailable Virginia MAHARAJ Attending Unavailable ROMEO ., RAINE Admitting Unavailable LANE RAMIREZ Consulting Unavailable VALONE, DR GEORGES Primary Care Unavailable ROMEO ., RAINE Attending Unavailable ROMEO ., RAINE Consulting Unavailable VALONE, DR GEORGES Consulting Unavailable VALONE, DR GEORGES Primary Care Unavailable VALONE, DR GEORGES Admitting Unavailable VALONE, DR GEORGES Attending Unavailable TIANNA, DR LANE Mcguire Consulting Unavailable VALONE, DR GEORGES Primary Care Unavailable BRYANT, ROYAL Admitting Unavailable BRYANT, ROYAL Attending Unavailable BRYANT, ROYAL Consulting Unavailable BRYANT, ROYAL Admitting Unavailable BRYANT, ROYAL Attending Unavailable BRYANT, ROYAL Consulting Unavailable VALONE, DR GEORGES Primary Care Unavailable VIRGINIA FLOYD Consulting Unavailable Problems Active Problems Problem Classification Problem Date Documented Da te Episodic/Chronic Delirium, dementia, and amnestic and other cognitive disorders (4 sources) Unspecified dementia without behavioral disturbance; Translations: [Alzheimer's disease, unspecified] Onset: 12-15-2021 Chronic E Codes: Fall (1 source) Unspecified fall, initial encounter; Translations: [UNSPECIFIED FALL INITIAL ENCOUNTER] Onset: 10-31-2022 Episodic Epilepsy; convulsions (1 source) Epilepsy, unspecified, not intractable, without status epilepticus; Translations: [EPILEPSY UNS NOT INTRACT W/O SE] Onset: 08-04-2022 Chronic Essential hypertension (1 source) Essential (primary) hypertension; Translations: [ESSENTIAL PRIMARY HYPERTENSION] Onset: 12-15-2021 Chronic Other aftercare (1 source) Other senior living (current) drug therapy; Translations: [OTH SHELTER CURRENT DRUG THERAPY] Onset: 10-31-2022 Episodic Other injuries and conditions due to external causes (4 sources) Unspecified injury of head, initial encounter; Translations: [UNSPECIFIED INJURY HEAD INITIAL ENC] Onset: 10-29-2022 Episodic Residual codes; unclassified (1 source) Do not resuscitate; Translations: [DO NOT RESUSCITATE] Onset: 10-31-2022 Episodic Spondylosis; intervertebral disc disorders; other back problems (4 sources) Spondylosis without myelopathy or radiculopathy, cervical region; Translations: [SPONDYLS W/O MYELO-/RADICULOP CERV] Onset: 12-13-2021 Chronic Substance-related disorders (1 source) Nicotine dependence, cigarettes, uncomplicated; Translations: [NICOTINE DEPEND CIGARETTES UNCOMP] Onset: 10-31-2022 Chronic Past or Other Problems Problem Classification Problem Date Documented Da te Episodic/Chronic Abdominal pain (4 sources) Unspecified abdominal pain; Translations: [UNSPECIFIED ABDOMINAL PAIN] Onset: 07-11-2022 Episodic Conditions associated with dizziness or vertigo (1 source) Dizziness and giddiness; Translations: [DIZZINESS AND GIDDINESS] Onset: 12-15-2021 Episodic Fluid and electrolyte disorders (1 source) Dehydration; Translations: [DEHYDRATION] Onset: 08-04-2022 Episodic Gastrointestinal hemorrhage (1 source) Melena; Translations: [MELENA] Onset: 07-13-2022 Episodic Residual codes; unclassified (4 sources) Altered mental status, unspecified; Translations: [ALTERED MENTAL STATUS UNSPECIFIED] Onset: 08-02-2022 Episodic Screening and history of mental health and substance abuse codes (1 source) Personal history of nicotine dependence; Translations: [PERSONAL HISTORY OF NICOTINE DEPEND] Onset: 07-13-2022 Episodic Results Test Name Value Interpretation Reference Range Facility CT CSPINE WO CONon 3 CT CSPINE WO CON INDICATION: 72 years old; Male. Right forehead hematoma. 2 falls today. Confusion although this finding is described as being consistent with patient's normal mental status. TECHNIQUE: CT Head (ax/cor/sag reformats). Ionizing radiation dose reduced via iterative reconstruction/FBP blend and body size kV/mA adjustment. Comparison: Head CT dated 12/13/2021. FINDINGS: POSTOPERATIVE CHANGES: None. BRAIN PARENCHYMA: No focal lesions. No mass effect. No midline shift or herniation. No intraparenchymal or extra-axial hemorrhage. Patchy and confluent low-density throughout the white matter consistent with small vessel ischemic change. VENTRICLES/EXTRA-AXIAL SPACES: Enlarged, consistent with atrophy. SINUSES/MASTOIDS: There is opacification of left maxillary sinus. Cyst or polyp formation is present in the maxillary sinus on the right. Mastoid air cells are clear. MSK: Allowing for motion artifacts, no fracture or bony displacement is appreciated. There is extracranial soft tissue swelling in the supraorbital region and frontal region on the right. No subjacent bony abnormality is noted. OTHER: No hyperdense intraluminal thrombus is seen. Vascular calcifications are noted. TECHNIQUE: CT imaging of the cervical spine was performed. IV contrast: None. Dose reduction techniques were achieved by using automated exposure control and/or adjustment of mA and/or kV according to patient size and/or use of iterative reconstruction technique. COMPARISON: Cervical CT dated 12/13/2021. FINDINGS: POSTOPERATIVE CHANGES: None. ALIGNMENT: Nonspecific straightening of the normal cervical curve. COMPRESSION FRACTURES: No fracture or vertebral body collapse is seen. No bony displacement is seen. There are bulky bridging anterior osteophytes noted extending from C3 through the upper thoracic spine consistent with DISH. 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 PREVERTEBRAL SOFT TISSUES: Displacement of the prevertebral soft tissue secondary to the large osteophytes. The airway is patent. CRANIOCERVICAL JUNCTION: There is a normal relationship of the occipital condyles, lateral masses of C1, and articular surfaces of C2. The base of the dens and body of C2 are intact. There is loss of the normal predental space with wptr-zq-azgt appearance associated with sclerosis and spurring arising from the dens and the anterior arch of C1. There is thickening and calcification of the transverse ligament. This narrows the CSF space anterior to the cord. POSTERIOR FOSSA: Cerebellar tonsils are above the foramen magnum. There is narrowing of the CSF space anterior the cord due to transverse ligament thickening. Disc levels: C2-C3: Partial bony trabeculation across the disc space. Disc bulging and endplate osteophyte formation. Facet degeneration. Bony canal is patent. C3-C4: Bulky bridging anterior osteophyte formation. Disc osteophyte complex centrally. Mild central canal stenosis. Bilateral facet degeneration with bony overgrowth worse on the right. Neural foramina patent. C4-C5: Disc space narrowing with deaf-iv-mzxf appearance associated with endplate sclerosis and cystic changes. Bulky bridging anterior osteophyte formation. Facet degeneration, worse on the left than the right. Mild central canal stenosis. Mild left-sided foraminal stenosis. C5-C6: Disc space narrowing with pwaq-mi-whsv appearance associated with endplate cystic changes. Uncovertebral joint degeneration and facet degeneration. Bulky bridging anterior osteophyte formation. Mild central canal stenosis. Mild bilateral foraminal stenosis. C6-C7: Disc space narrowing with wmfe-od-ffiv appearance associated with endplate sclerosis and cystic changes. Bulky bridging anterior osteophyte formation with pseudoarthrosis between the osteophytes arising from C6 and C7. Uncovertebral joint degeneration is noted. Mild central canal stenosis. Moderate left and mild right foraminal stenosis. C7-T1: Disc space narrowing with bulky bridging anterior osteophyte formation. Central canal and neural foramina patent. UPPER THORACIC SPINE: Not included in this examination. OTHER: No thyroid nodule or adenopathy. IMPRESSION: 1. No acute intracranial abnormality. No hemorrhage or mass effect. 2. Small vessel ischemic changes. 3. Atrophy. 4. Vascular calcification. 5. No acute cervical fracture is seen. There is diffuse cervical spondylosis with DISH. 6. Extra cranial soft tissue swelling in the supraorbital region on the right. Electronically authenticated by: VIRGINIA FLOYD Date: 2022-10-29 01:39 Normal [facility] LEVETIRACETAM, SERUM OR PLAS MAon 08-04-2022 Levetiracetam, S 16.6 ug/mL Normal 10.0-40.0 [facility] Comment on above: Performed By: #### K EPPRA ####[facility] [id number] [place], [place] [address]VwDr. Minal Whatley BNPon 08-02-2022 Natriuretic peptide B (Bld) [Mass/Vol] 382.0 pg/mL Normal <=900.0 [facility] Comment on above: Performed By: #### C MADM, BNP, CMP #### [facility] [address] [place], [place] [address] Dr. Minal Whatley CARDIAC GURJIT ADMITon 023 CK [Catalytic activity/Vol] 89 U/L Normal 39-308 [facility] Comment on above: Performed By: #### C MADM, BNP, CMP #### [facility] [address] [place] [address] [address] Minal Whatley CK.MB [Mass/Vol] 1.34 ng/mL Normal <=3.60 [facility] Comment on above: Performed By: #### C MADM, BNP, CMP #### [facility] [address] [place] [address] [address] Minal Whatley HSTROP 9.2 pg/mL Normal 4.0-76.1 [facility] Comment on above: Result Comment: CUT- OFF POINTS HAVE BEEN ESTABLISHED BASED ON THE FOURTH UNIVERSAL DEFINITIONS OF MYOCARDIAL INFARCTION. THE UPPER REFERENCE LIMIT (URL) OF TROPONIN, DEFINED THE 99TH PERCENTILE OF cTnI DISTRIBUTION IN A REFERENCE POPULATION, HAS BEEN CONFIRMED THE DECISION THRESHOLD FOR ND DIAGNOSIS. Performed By: #### C MADM, BNP, CMP #### [facility] [address] [place] [address] [address] Minal Whatley LILIA 139 ng/mL Critically high 16-96 [facility] Comment on above: Performed By: #### C MADM, BNP, CMP #### [facility] [address] [place] [address] [address] Minal Whatley CBC AUTO DIFFon 08-02-2022 BASO # 0.1 103/ul Normal 0.0-0.1 [facility] Comment on above: Performed By: #### C BC #### [facility] [address] [place] [address] [address] Minal Whatley Basophils/100 WBC (Bld) 0.7 % Normal 0.2-2.0 [facility] Comment on above: Performed By: #### C BC #### [facility] [address] [place] [address] [address] Minal Whatley EO # 0.1 103/ul Normal 0.0-0.7 [facility] Comment on above: Performed By: #### C BC #### [facility] [address] [place] [address] [address] Minal Whatley Eosinophils/100 WBC (Bld) 1.8 % Normal 0.9-7.0 [facility] Comment on above: Performed By: #### C BC #### [facility] [address] [place] [address] Dr. Minal Whatley Erythrocyte distribution width (RBC) [Ratio] 12.4 % Normal 11.0-15.0 [facility] Comment on above: Performed By: #### C BC #### [facility] [address] [place] [address] Dr. Minal Whatley Hematocrit (Bld) [Volume fraction] 42.5 % Normal 42.0-54.0 [facility] Comment on above: Performed By: #### C BC #### [facility] [address] [place] [address] Dr. Minal Whatley Hemoglobin (Bld) [Mass/Vol] 14.3 g/dL Normal 14.0-18.0 [facility] Comment on above: Performed By: #### C BC #### [facility] [address] [place] [address] Dr. Minal Whatley IG # 0.03 10e3/ul Normal 0.00-0.03 [facility] Comment on above: Performed By: #### C BC #### [facility] [address] [place] [address] Dr. Minal Whatley IG % 0.4 % Normal 0.0-0.5 [facility] Comment on above: Performed By: #### C BC #### [facility] [address] [place] [address] Dr. Minal Whatley LYMPH # 1.0 103/ul Critically low 1.2-3.[address] [facility] Comment on above: Performed By: #### C BC #### [facility] [address] [place] [address] Dr. Minal Whatley Lymphocytes/100 WBC (Bld) 13.2 % Critically low 20.5-60.0 [facility] Comment on above: Performed By: #### C BC #### [facility] [address] [place] [address] Dr. Minal Whatley MANUAL DIFF REQ NO Normal [facility] Comment on above: Performed By: #### C BC #### [facility] [address] [address] [address] Minal Whatley MCH (RBC) [Entitic mass] 32.0 pg Normal 25.9-34.0 [facility] Comment on above: Performed By: #### C BC #### [facility] [address] [address] [address] Minal Whatley MCHC (RBC) [Mass/Vol] 33.6 g/dL Normal 29.9-35.2 [facility] Comment on above: Performed By: #### C BC #### [facility] [address] [address] [address] Minal Whatley MCV (RBC) [Entitic vol] 95.1 fL Critically high 80.0-94.0 [facility] Comment on above: Performed By: #### C BC #### [facility] [address] [place] [address] Dr. Minal Whatley MONO # 0.9 103/ul Critically high 0.3-0.8 [facility] Comment on above: Performed By: #### C BC #### [facility] [address] [address] [address] Minal Whatley Monocytes/100 WBC (Bld) 12.2 % Critically high 1.7-12.0 [facility] Comment on above: Performed By: #### C BC #### [facility] [address] [place] [address] Dr. Minal Whatley NEUT # 5.2 103/ul Normal 1.4-6.5 [facility] Comment on above: Performed By: #### C BC #### [facility] [address] [place] [address] Dr. Minal Whatley Neutrophils/100 WBC (Bld) 71.7 % Normal 43.0-75.0 [facility] Comment on above: Performed By: #### C BC #### [facility] [address] [place] [address] Dr. Minal Whatley Platelet mean volume (Bld) [Entitic vol] 9.6 fL Normal 9.5-13.5 [facility] Comment on above: Performed By: #### C BC #### [facility] [address] [address] [address] Minal Whatley PLT 173 103/ul Normal 150-450 [facility] Comment on above: Performed By: #### C BC #### [facility] [address] [place] [address] [address] Minal Whatley RBC 4.47 106/ul Critically low 4.70-6.10 [facility] Comment on above: Performed By: #### C BC #### [facility] [address] [place] [address] [address] Minal Whatley WBC 7.3 103/ul Normal 4.0-11.0 [facility] Comment on above: Performed By: #### C BC #### [facility] [address] [place] [address] [address] Minal Whatley ER URINE PROFILEon 3 Bilirubin Ql (U) MODERATE Abnormal NEGATIVE [facility] Comment on above: Performed By: #### U MICRO, ERUR ####[facility] [id number] [place], [place] [address]Dr. Minal Whatley Clarity (U) CLEAR Normal CLEAR [facility] Comment on above: Performed By: #### U MICRO, ERUR ####[facility] [address] [place] [address]Dr. Minal Whatley Color (U) DK. YELLOW Normal YELLOW [facility] Comment on above: Performed By: #### U MICRO, ERUR ####[facility] [address] [place] [address]Dr. Minal Whatley ERUAHD A micrscopic examination will be performed if indicated. Normal [facility] Comment on above: Performed By: #### U MICRO, ERUR ####[facility] [address] [place] [address]Dr. Minal Whatley Glucose Ql (U) Negative Normal NEGATIVE [facility] Comment on above: Performed By: #### U MICRO, ERUR ####[facility] [address] [place], [place] [address]Dr. Minal Whatley Hemoglobin Ql (U) Negative Normal NEGATIVE [facility] Comment on above: Performed By: #### U MICRO, ERUR ####[facility] [address] [place] [address]Dr. Inesfozia Whatley Ketones Ql (U) 15 mg/dl Abnormal NEGATIVE [facility] Comment on above: Performed By: #### U MICRO, ERUR ####[facility] [address] [place] [address]Dr. Inesfozia Chacorta LEUKOCYTES Negative Normal NEGATIVE [facility] Comment on above: Performed By: #### U MICRO, ERUR ####[facility] [address] [place] [address]Dr. Minal Chacorta Nitrite Ql (U) Negative Normal NEGATIVE [facility] Comment on above: Performed By: #### U MICRO, ERUR ####[facility] [address] [place], [place] [address]Dr. Minal Whatley pH (U) 6.0 [pH] Normal 5-9 [facility] Comment on above: Performed By: #### U MICRO, ERUR ####[facility] [address] [place], [place] [address]Dr. Minal Whatley Protein (U) [Mass/Vol] 30 mg/dL Abnormal NEGATIVE/ TRACE [facility] Comment on above: Performed By: #### U MICRO, ERUR ####[facility] [address] [place], [place] [address]Dr. Minal Whatley SPEC GRAVITY 1.025 Normal 1.005-<=1.025 [facility] Comment on above: Performed By: #### U MICRO, ERUR ####[facility] [address] [place] [address]Dr. Minal Whatley UR MICRO IND INDICATED Normal [facility] Comment on above: Performed By: #### U MICRO, ERUR ####[facility] [address] [place] [address]Dr. Minal Whatley Urobilinogen Qn (U) 4 {Linette'U}/dL Abnormal 0.2 - 1.0 [facility] Comment on above: Performed By: #### U MICRO, ERUR ####[facility] [address] [place] [address]Dr. Minal Whatley LACTATE/LACTIC ACIDon 2022 Lactate [Moles/Vol] 1.7 mmol/L Normal 0.4-1.9 [facility] Comment on above: Performed By: #### L ACT #### [facility] [address] [place] [address] [address] Minal Whatley PROF 14(COMP METB)on 023 Albumin [Mass/Vol] 3.5 g/dL Normal 3.4-5.0 [facility] Comment on above: Performed By: #### C MADM, BNP, CMP #### [facility] [address] [place] [address] [address] Minal Whatley Albumin/Globulin [Mass ratio] 1.0 {ratio} Normal [facility] Comment on above: Performed By: #### C MADM, BNP, CMP #### [facility] [address] [place] [address] [address] Minal Whatley ALP [Catalytic activity/Vol] 90 U/L Normal 46-116 [facility] Comment on above: Performed By: #### C MADM, BNP, CMP #### [facility] [address] [place] [address] [address] Minal Whatley ALT [Catalytic activity/Vol] 15 U/L Critically low 16-63 [facility] Comment on above: Performed By: #### C MADM, BNP, CMP #### [facility] [address] [address] [address] Minal Whatley Anion gap [Moles/Vol] 10.4 mmol/L Normal [facility] Comment on above: Performed By: #### C MADM, BNP, CMP #### [facility] [address] [address] [address] Minal Whatley AST [Catalytic activity/Vol] 15 U/L Normal 15-37 [facility] Comment on above: Performed By: #### C MADM, BNP, CMP #### [facility] [address] [address] [address] Minal Whatley Bilirubin [Mass/Vol] 0.4 mg/dL Normal 0.2-1.0 [facility] Comment on above: Performed By: #### C MADM, BNP, CMP #### [facility] [address] [place] [address] Dr. Minal Whatley Calcium [Mass/Vol] 8.8 mg/dL Normal 8.5-10.1 [facility] Comment on above: Performed By: #### C MADM, BNP, CMP #### [facility] [address] [place] [address] Dr. Minal Whatley Chloride [Moles/Vol] 107 mmol/L Normal 98-107 [facility] Comment on above: Performed By: #### C MADM, BNP, CMP #### [facility] [address] [place] [address] Dr. Minal Whatley CO2 [Moles/Vol] 30.0 mmol/L Normal 21.0-32.0 [facility] Comment on above: Performed By: #### C MADM, BNP, CMP #### [facility] [address] [place] [address] Dr. Minal Whatley Creatinine [Mass/Vol] 0.88 mg/dL Normal 0.70-1.30 [facility] Comment on above: Performed By: #### C MADM, BNP, CMP #### [facility] [address] [place] [address] Dr. Minal Whatley EGFR-AF BRITISH >60 Normal >=60 [facility] Comment on above: Performed By: #### C MADM, BNP, CMP #### [facility] [address] [place] [address] Dr. Minal Whatley EGFR-NON AF BRITISH >60 Normal >=60 [facility] Comment on above: Performed By: #### C MADM, BNP, CMP #### [facility] [address] [place] [address] Dr. Minal Whatley Globulin (S) [Mass/Vol] 3.4 g/dL Normal [facility] Comment on above: Performed By: #### C MADM, BNP, CMP #### [facility] [address] [address] [address] Minal Whatley Glucose [Mass/Vol] 122 mg/dL Critically high 74-106 [facility] Comment on above: Performed By: #### C MADM, BNP, CMP #### [facility] [address] [address] [address] Minal Whatley Potassium [Moles/Vol] 3.4 mmol/L Critically low 3.5-5.1 [facility] Comment on above: Performed By: #### C MADM, BNP, CMP #### [facility] [address] [address] [address] Minal Whatley Protein [Mass/Vol] 6.9 g/dL Normal 6.4-8.2 [facility] Comment on above: Performed By: #### C MADM, BNP, CMP #### [facility] [address] [place] [address] Dr. Minal Whaltey Sodium [Moles/Vol] 144 mmol/L Normal 136-145 [facility] Comment on above: Performed By: #### C MADM, BNP, CMP #### [facility] [address] [address] [address] Minal Whatley Urea nitrogen [Mass/Vol] 26.0 mg/dL Critically high 7.0-18.0 [facility] Comment on above: Performed By: #### C MADM, BNP, CMP #### [facility] [address] [place] [address] Dr. Minal Whatley Urea nitrogen/Creatinine [Mass ratio] 29.5 mg/mg Normal [facility] Comment on above: Performed By: #### C MADM, BNP, CMP #### [facility] [address] [address] [address] Minal Whatley PROTIMEon 08-02-2022 INR Coag (PPP) [Relative time] 1.08 {INR} Normal [facility] Comment on above: Performed By: #### P TT, PT ####[facility] [address] [address]Dr. Minal Whatley INR GUIDELINES SEE BELOW Normal [facility] Comment on above: Result Comment: YOLANDA RED INR: 2.0 - 3.0 CONDITIONS NOT LISTED BELOW 2.5 - 3.5 FOR PROSTHETIC HEART VALVE REPLACEMENT 2.5 - 3.5 RECURRENT THROMBOSIS Performed By: #### P TT, PT ####[facility] [address] [place] [address]Dr. Minal Whatley PT Coag (PPP) [Time] 11.4 s Normal 9.0-11.6 [facility] Comment on above: Performed By: #### P TT, PT ####[facility] [address] [place] [address]Dr. Minal Whatley PTTon 08-02-2022 aPTT Coag (Bld) [Time] 26.0 s Normal 22.3-36.2 [facility] Comment on above: Performed By: #### P TT, PT ####[facility] N[address] [place], [place] [address]Dr. Minal Whatley URINE MICROSCOPIC ONLYon BACTERIA NONE SEEN Normal NONE SEEN [facility] Comment on above: Performed By: #### U MICRO, ERUR ####[facility] El[address] [place], [place] [address]Dr. Minal Whatley Bacteria identified Cx Nom (U) NOT INDICATED Normal [facility] Comment on above: Performed By: #### U MICRO, ERUR ####[facility] [address] [place], [place] [address]Dr. Minal Whatley CAST NONE SEEN Normal NONE SEEN [facility] Comment on above: Performed By: #### U MICRO, ERUR ####[facility] Asfpxidckw[address] [place], [place] [address]Dr. Minal Whatley Crystals LM Nom (Urine sed) NONE SEEN Normal NONE SEEN [facility] Comment on above: Performed By: #### U MICRO, ERUR ####[facility] Eyecfr[address] [place], [place] [address]Dr. Minal Whatley Epithelial cells LM Ql (Urine sed) RARE Normal NONE SEEN /RARE [facility] Comment on above: Performed By: #### U MICRO, ERUR ####[facility] [address] [place], [place] [address]Mo. Minal Whatley MUCOUS NONE SEEN Normal NONE SEEN [facility] Comment on above: Performed By: #### U MICRO, ERUR ####[facility] [address] [place], [place] [address]Zo. Minal Whatley RBC 0-2 Normal 0-2 [facility] Comment on above: Performed By: #### U MICRO, ERUR ####[facility] [address]xf[address] [place], [place] [address]Pu. Minal Whatley WBC NONE SEEN Normal NONE SEEN [facility] Comment on above: Performed By: #### U MICRO, ERUR ####[facility] [address] [place] [id number]. Minal Whatley XR CHEST 1 Von 08-02-2022 XR CHEST 1 V EXAM: XR CHEST 1 V HISTORY: . Altered mental status . COMPARISON: 11/07/2021 TECHNIQUE: Single view of the chest FINDINGS: Heart and vascularity are unremarkable. Lungs are free of focal infiltrates. Atherosclerotic changes of the thoracic aorta are noted. Arthritic changes of both shoulders are noted. IMPRESSION: No acute heart or lung disease identified. Electronically authenticated by: LANE RAMIREZ Date: 2022-08-02 09:24 Normal [facility] ED Note-Physicianon 07-14-19 23 ED Note-Physician [id number] 0CD:127 Normal [facility] Physician Referralon 023 Physician Referral [id number] 0CD:127 Normal [facility] CBC AUTO DIFFon 07-11-2022 BASO # 0.0 103/ul Normal 0.0-0.1 [facility] Comment on above: Performed By: #### C BC ####[facility] [address] [place] [id number]. Minal Whatley Basophils/100 WBC (Bld) 0.5 % Normal 0.2-2.0 [facility] Comment on above: Performed By: #### C BC ####[facility] [address] [place] [address]Dr. Minal Whatley EO # 0.1 103/ul Normal 0.0-0.7 [facility] Comment on above: Performed By: #### C BC ####[facility] [address] [place] [address]Dr. Minal Whatley Eosinophils/100 WBC (Bld) 1.0 % Normal 0.9-7.0 [facility] Comment on above: Performed By: #### C BC ####[facility] [address] [place], [place] [address]Dr. Minal Whatley Erythrocyte distribution width (RBC) [Ratio] 12.7 % Normal 11.0-15.0 [facility] Comment on above: Performed By: #### C BC ####[facility] [address] [place], [place] [address]Dr. Minal Whatley Hematocrit (Bld) [Volume fraction] 44.5 % Normal 42.0-54.0 [facility] Comment on above: Performed By: #### C BC ####[facility] Z[address] [place], [place] [address]Dr. Minal Whatley Hemoglobin (Bld) [Mass/Vol] 14.5 g/dL Normal 14.0-18.0 [facility] Comment on above: Performed By: #### C BC ####[facility] P[address] [place], [place] [address]Dr. Minal Whatley IG # 0.02 10e3/ul Normal 0.00-0.03 [facility] Comment on above: Performed By: #### C BC ####[facility] [address] [place], [place] [address]Dr. Minal Whatley IG % 0.3 % Normal 0.0-0.5 [facility] Comment on above: Performed By: #### C BC ####[facility] [address] [place], [place] [address]Dr. Inesfozia Whatley LYMPH # 1.0 103/ul Critically low 1.2-3.8 [facility] Comment on above: Performed By: #### C BC ####[facility] [address] [place] [id number]. Minal Whatley Lymphocytes/100 WBC (Bld) 12.3 % Critically low 20.5-60.0 [facility] Comment on above: Performed By: #### C BC ####[facility] [address] [place] [id number]. Minal Whatley MANUAL DIFF REQ NO Normal [facility] Comment on above: Performed By: #### C BC ####[facility] [address] [place] [id number]. Minal Chacorta MCH (RBC) [Entitic mass] 32.4 pg Normal 25.9-34.0 [facility] Comment on above: Performed By: #### C BC ####[facility] [address] [place], [place] [address]Dr. Inesfozia Whatley MCHC (RBC) [Mass/Vol] 32.6 g/dL Normal 29.9-35.2 [facility] Comment on above: Performed By: #### C BC ####[facility] [address] [place] [address]Dr. Minal Chacorta MCV (RBC) [Entitic vol] 99.3 fL Critically high 80.0-94.0 [facility] Comment on above: Performed By: #### C BC ####[facility] [address] [place], [place] [address]Dr. Inesfozia Chacorta MONO # 0.7 103/ul Normal 0.3-0.8 [facility] Comment on above: Performed By: #### C BC ####[facility] [address] [place], [place] [address]Dr. Inesfozia Whatley Monocytes/100 WBC (Bld) 8.7 % Normal 1.7-12.0 [facility] Comment on above: Performed By: #### C BC ####[facility] [address] [place], [place] [address]Dr. Minal Whatley NEUT # 6.0 103/ul Normal 1.4-6.5 [facility] Comment on above: Performed By: #### C BC ####[facility] [address] [place] [id number]. Minal Whatley Neutrophils/100 WBC (Bld) 77.2 % Critically high 43.0-75.0 [facility] Comment on above: Performed By: #### C BC ####[facility] [address] [place] [id number]. Minal Whatley Platelet mean volume (Bld) [Entitic vol] 9.5 fL Normal 9.5-13.5 [facility] Comment on above: Performed By: #### C BC ####[facility] [address] [place] [id number]. Minal Whatley PLT 194 103/ul Normal 150-450 [facility] Comment on above: Performed By: #### C BC ####[facility] [address] [place] [address]Dr. Minal Whatley RBC 4.48 106/ul Critically low 4.70-6.10 [facility] Comment on above: Performed By: #### C BC ####[facility] [address] [place] [id number]. Minal Whatley WBC 7.8 103/ul Normal 4.0-11.0 [facility] Comment on above: Performed By: #### C BC ####[facility] [address] [place] [id number]. Minal Whatley OCC BLD IMMUNO SCREENon OCCULT BLOOD Positive Abnormal NEGATIVE [facility] Comment on above: Performed By: #### O BSCRN ####[facility] [address] [place] [id number]. Minal Whatley PROF CHEM 8 (BAS METB)on Anion gap [Moles/Vol] 11.9 mmol/L Normal [facility] Comment on above: Performed By: #### B MP ####[facility] [address] [place] [address]Dr. Minal Whatley Calcium [Mass/Vol] 8.8 mg/dL Normal 8.5-10.1 [facility] Comment on above: Performed By: #### B MP ####[facility] [address] [place] [address]Dr. Minal Whatley Chloride [Moles/Vol] 106 mmol/L Normal 98-107 [facility] Comment on above: Performed By: #### B MP ####[facility] [address] [place] [address]Dr. Minal Whatley CO2 [Moles/Vol] 29.7 mmol/L Normal 21.0-32.0 [facility] Comment on above: Performed By: #### B MP ####[facility] [address] [place] [address]Dr. Minal Whatley Creatinine [Mass/Vol] 0.82 mg/dL Normal 0.70-1.30 [facility] Comment on above: Performed By: #### B MP ####[facility] [address] [place] [address]Dr. Minal Whatley EGFR-AF BRITISH >60 Normal >=60 [facility] Comment on above: Performed By: #### B MP ####[facility] [address] [place] [address]Dr. Minal Whatley EGFR-NON AF BRITISH >60 Normal >=60 [facility] Comment on above: Performed By: #### B MP ####[facility] [address] [place] [address]Dr. Minal Whatley Glucose [Mass/Vol] 127 mg/dL Critically high 74-106 [facility] Comment on above: Performed By: #### B MP ####[facility] [address] [place] [address]Dr. Minal Whatley Potassium [Moles/Vol] 3.6 mmol/L Normal 3.5-5.1 [facility] Comment on above: Performed By: #### B MP ####[facility] [address] [place] [address]Dr. Minal Whatley Sodium [Moles/Vol] 144 mmol/L Normal 136-145 [facility] Comment on above: Performed By: #### B MP ####[facility] [address] [place], [place] [address]OiDr. Minal Whatley Urea nitrogen [Mass/Vol] 24.0 mg/dL Critically high 7.0-18.0 [facility] Comment on above: Performed By: #### B MP ####[facility] Net[address] [place], [place] [address]BjDr. Minal Whatley Urea nitrogen/Creatinine [Mass ratio] 29.3 mg/mg Normal [facility] Comment on above: Performed By: #### B MP ####[facility] N[address]tlhq[address] [place], [place] [address]LsDr. Minal Whatley PROTIMEon 07-11-2022 INR Coag (PPP) [Relative time] 1.04 {INR} Normal [facility] Comment on above: Performed By: #### P TT, PT #### [facility] [address] [address] [address] Minal Whatley INR GUIDELINES SEE BELOW Normal [facility] Comment on above: Result Comment: YOLANDA RED INR: 2.0 - 3.0 CONDITIONS NOT LISTED BELOW 2.5 - 3.5 FOR PROSTHETIC HEART VALVE REPLACEMENT 2.5 - 3.5 RECURRENT THROMBOSIS Performed By: #### P TT, PT #### [facility] [address] [address] [address] Minal Whatley PT Coag (PPP) [Time] 11.0 s Normal 9.0-11.6 [facility] Comment on above: Performed By: #### P TT, PT #### [facility] [address] [address] [address] Minal Whatley PTTon 07-11-2022 aPTT Coag (Bld) [Time] 26.3 s Normal 22.3-36.2 [facility] Comment on above: Performed By: #### P TT, PT #### [facility] [address] [place] [address] HEAD WO CONon 12-13-2021 CT HEAD WO CON EXAMINATION: CT HEAD WO CON, 12/13/2021 9:35 AM EDT HISTORY: Vertigo, dementia, hypertension COMPARISON: 11/08/2019 TECHNIQUE: CT scan of the head was performed without IV contrast. CT dose reduction technique was used, including Automated Exposure Control. FINDINGS: BRAIN: Stable mild to moderate generalized atrophy. Stable scattered white matter hypoattenuation. No parenchymal mass or hemorrhage CSF SPACES: No hydrocephalus, subarachnoid hemorrhage, or mass. Appropriate for age. SKULL: No fracture, mass, or other significant visible lesion. SINUSES: Moderate bilateral ethmoid sinus disease. Opacification of the visualized left maxillary sinus. ORBITS: No appreciable abnormality on the limited views. OTHER: Negative IMPRESSION: Stable atrophy and white matter disease. Chronic small vessel ischemic changes are favored Electronically authenticated by: LANE WYNN Date: 2021-12-13 11:02 Normal [facility] Basic Metabolic Panelon - Calcium [Mass/Vol] 8.9 mg/dL Normal 8.2-10.2 [facility] Comment on above: Result Comment: PERF ORMED BY: [place] [address] PATHOLOGIST PACK ROOM OPERATOR TIGRE EDMONDSON M.D. Performed By: #### C EFRAIN VALP, BMP #### [facility] [address] [place] [address] [place] Chloride [Moles/Vol] 92 mmol/L Low 95-114 [facility] Comment on above: Performed By: #### C BC VALP, BMP #### [facility] [address] [place] [address] CO2 [Moles/Vol] 27.3 mmol/L Normal 22.0-30.0 [facility] Comment on above: Performed By: #### C EFRAIN VALP, BMP #### [facility] [address] [place] [address] Creatinine [Mass/Vol] 0.86 mg/dL Normal 0.64-1.27 [facility] Comment on above: Performed By: #### C BC, VALP, BMP #### [place] [address] [place] Estimated GFR ( [place] > 60 Normal [facility] Comment on above: Result Comment: GFR estimated reference range: According to KDOQI guidelines, <60 ml/min/1.73m2 is sufficient to diagnose a patient with chronic kidney disease. Performed By: #### C ILIANA ZUNIGA, BMP #### [facility] [address] Estimated GFR (Non- Am > 60 Normal [facility] Comment on above: Performed By: #### C EFRAIN VALP, BMP #### [address] Glucose [Mass/Vol] 83 mg/dL Normal 70-100 [facility] Comment on above: Result Comment: [facility] Glucose Reference Range is dependent on time and content of last meal. Glucose of more than 200 mg/dL in a nonstressed, ambulatory subject supports the diagnosis of Diabetes Mellitus. ADA recommended reference range Performed By: #### C ILIANA ZUNIGA, BMP #### [address] Potassium [Moles/Vol] 4.3 mmol/L Normal 3.5-5.1 [facility] Comment on above: Performed By: #### C EFRAIN VALP, BMP #### [address] Sodium [Moles/Vol] 130 mmol/L Low 136-146 [facility] Comment on above: Performed By: #### C EFRAIN VALP, BMP #### [address] Urea nitrogen [Mass/Vol] 11 mg/dL Normal 9-23 [facility] Comment on above: Performed By: #### C EFRAIN VALP, BMP #### [address] Complete Blood Count Auto Di ffon 03-21-2021 Basophils (Bld) [#/Vol] 0.0 10*3/uL Normal 0.0-0.2 [facility] Comment on above: Result Comment: PERF ORMED BY: [place] [address] PATHOLOGIST PACK ROOM OPERATOR TIGRE EDMONDSON M.D. Performed By: #### C BC, VALP, BMP #### [facility] [address] [place] [address] [place] Basophils/100 WBC (Bld) 0.6 % Normal . [facility] Comment on above: Performed By: #### C BC, VALP, BMP #### [facility] [address] Eosinophils (Bld) [#/Vol] 0.1 10*3/uL Normal 0.0-0.45 [facility] Comment on above: Performed By: #### C BC, VALP, BMP #### [address] Eosinophils/100 WBC (Bld) 2.3 % Normal . [facility] Comment on above: Performed By: #### C BC, VALP, BMP #### [address] Erythrocyte distribution width (RBC) [Ratio] 13.3 % Normal 12.0-14.8 [facility] Comment on above: Performed By: #### C BC, VALP, BMP #### [address] Hematocrit (Bld) [Volume fraction] 44.2 % Normal 38.8-50.0 [facility] Comment on above: Performed By: #### C BC, VALP, BMP #### [place] [address] [place] Hemoglobin (Bld) [Mass/Vol] 14.6 g/dL Normal 13.0-17.0 [facility] Comment on above: Performed By: #### C BC, VALP, BMP #### [facility] [address] [place] [address] [place] Lymphocytes (Bld) [#/Vol] 1.3 10*3/uL Normal 1.00-4.8 [facility] Comment on above: Performed By: #### C BC, VALP, BMP #### [facility] [address] [place] [address] [place] Lymphocytes/100 WBC (Bld) 23.4 % Normal . [facility] Comment on above: Performed By: #### C BC, VALP, BMP #### [facility] [address] MCH (RBC) [Entitic mass] 32.0 pg Normal 27.5-35.2 [facility] Comment on above: Performed By: #### C BC, VALP, BMP #### [address] MCV (RBC) [Entitic vol] 97.0 fL Normal 83.5-101 [facility] Comment on above: Performed By: #### C BC, VALP, BMP #### [address] Mean Corpuscular HGB Conc 33.0 g/dL Normal 32.5-35.6 [facility] Comment on above: Performed By: #### C BC, VALP, BMP #### [address] Monocytes (Bld) [#/Vol] 0.8 10*3/uL Normal 0.0-0.8 [facility] Comment on above: Performed By: #### C BC, VALP, BMP #### [address] Monocytes/100 WBC (Bld) 14.1 % Normal . [facility] Comment on above: Performed By: #### C BC, VALP, BMP #### [address] Neutrophils (Bld) [#/Vol] 3.4 10*3/uL Normal 1.8-7.7 [facility] Comment on above: Performed By: #### C BC, VALP, BMP #### [address] Neutrophils/100 WBC (Bld) 59.6 % Normal . [facility] Comment on above: Performed By: #### C BC, VALP, BMP #### [address] Nucleated RBC/100 WBC (Bld) [Ratio] 0.2 % Normal 0-0.5 [facility] Comment on above: Performed By: #### C ILIANA ZUNIGA BMP #### [address] Platelet mean volume (Bld) [Entitic vol] 7.5 fL Normal 6.6-10.1 [facility] Comment on above: Performed By: #### C ILIANA ZUNIGA, BMP #### [address] Platelets (Bld) [#/Vol] 211 10*3/uL Normal 150-450 [facility] Comment on above: Performed By: #### C ILIANA ZUNIGA BMP #### [address] RBC (Bld) [#/Vol] 4.55 10*6/uL Normal 3.90-5.60 [facility] Comment on above: Performed By: #### C ILIANA ZUNIGA, BMP #### [address] WBC (Bld) [#/Vol] 5.8 10*3/uL Normal 4.5-11.0 [facility] Comment on above: Performed By: #### C ILIANA ZUNIGA, BMP #### [address] Valproic Acid (in house)on Valproic Acid (in house) 50.7 ug/mL Normal 50.0-100.0 [facility] Comment on above: Result Comment: Last dose: - PERFORMED BY: [place] [address] PATHOLOGIST PACK ROOM OPERATOR TIGRE EDMONDSON M.D. Performed By: #### C ILIANA ZUNIGA, BMP #### [address] BASIC METABOLIC PANELon 04-3 Calcium [Mass/Vol] 8.1 mg/dL Low 8.6-10.3 [facility] Comment on above: Order Comment: No: D o not add to previous draw Performed By: #### 5 610, 93273 #### [facility] [address] [place] [address], [place] Chloride [Moles/Vol] 112 mmol/L High 98-107 [facility] Comment on above: Order Comment: No: D o not add to previous draw Performed By: #### 5 610, 16077 #### [facility] [address] [place] [address], [place] CO2 [Moles/Vol] 22 mmol/L Normal 21-31 [facility] Comment on above: Order Comment: No: D o not add to previous draw Performed By: #### 5 610, 58469 #### [facility] [address] [place] [address], [place] Creatinine [Mass/Vol] 0.50 mg/dL Low 0.70-1.30 [facility] Comment on above: Order Comment: No: D o not add to previous draw Performed By: #### 5 6100, 23172 #### [facility] [address] [place] [address], [place] GFR/1.73 sq M predicted among blacks MDRD (S/P/Bld) [Vol rate/Area] mL/min/{1.73_m2} Normal >60 [facility] Comment on above: Order Comment: No: D o not add to previous draw Performed By: #### 5 610, 70369 #### [facility] [address] [place] [address], [place] GFR/1.73 sq M predicted among non-blacks MDRD (S/P/Bld) [Vol rate/Area] mL/min/{1.73_m2} Normal >60 [facility] Comment on above: Order Comment: No: D o not add to previous draw Performed By: #### 5 610, 64187 #### [facility] [address] [place] [address], [facility] Glucose [Mass/Vol] 95 mg/dL Normal 70-100 [facility] Comment on above: Order Comment: No: D o not add to previous draw Performed By: #### 5 610, 38319 #### [facility] [address] [place] [address], [facility] Potassium [Moles/Vol] 3.5 mmol/L Normal 3.5-5.1 [facility] Comment on above: Order Comment: No: D o not add to previous draw Performed By: #### 5 610, 18758 #### [facility] [address] [facility] [place] [place] [address], [facility] Sodium [Moles/Vol] 142 mmol/L Normal 136-145 The [facility] Comment on above: Order Comment: No: D o not add to previous draw Performed By: #### 5 610, 20120 #### [facility] [address] [facility] [place] [address], [facility] Urea nitrogen [Mass/Vol] 25 mg/dL Normal 7-25 [facility] Comment on above: Order Comment: No: D o not add to previous draw Performed By: #### 5 610, 40456 #### [facility] [address] [facility] [place] [place] [address], [facility] CBC W/DIFFon 10-01-2018 ABS BASOPHILS 0.0 10*3/uL Normal 0.0-0.[address] [facility] Comment on above: Order Comment: No: D o not add to previous draw Performed By: #### 5 610, 44174 #### [facility] [address] [facility] [place] [place] [address], [facility] ABS IMM GRANS 0.1 10*3/uL Normal 0.0-0.[address] [facility] Comment on above: Order Comment: No: D o not add to previous draw Performed By: #### 5 610, 84627 #### [facility] [address] [place] [address], [facility] ABS NEUTROPHILS 4.5 10*3/uL Normal 1.6-7.6 [facility] Comment on above: Order Comment: No: D o not add to previous draw Performed By: #### 5 6100, 30436 #### [facility] [address] [place] [address], [facility] Basophils/100 WBC (Bld) 0.4 % Normal 0.0-1.0 [facility] Comment on above: Order Comment: No: D o not add to previous draw Performed By: #### 5 6100, 41165 #### [facility] [address] [place] [address], [facility] Eosinophils (Bld) [#/Vol] 0.3 10*3/uL Normal 0.0-0.5 [facility] Comment on above: Order Comment: No: D o not add to previous draw Performed By: #### 5 6100, 28388 #### [facility] [address] [place] [address], [facility] Eosinophils/100 WBC (Bld) 4.5 % Normal 0.0-6.0 [facility] Comment on above: Order Comment: No: D o not add to previous draw Performed By: #### 5 6100, 66793 #### [facility] [address] [place] [address], [facility] Erythrocyte distribution width (RBC) [Ratio] 16.1 % High 11.5-15.0 [facility] Comment on above: Order Comment: No: D o not add to previous draw Performed By: #### 5 6100, 56440 #### [facility] [address] [place] [id number], [facility] Hematocrit (Bld) [Volume fraction] 22.3 % Low 39.0-50.0 [facility] Comment on above: Order Comment: No: D o not add to previous draw Performed By: #### 5 6100, 25584 #### [facility] [address] [place] [address], [facility] Hemoglobin (Bld) [Mass/Vol] 7.3 g/dL Low 13.0-17.0 [facility] Comment on above: Order Comment: No: D o not add to previous draw Performed By: #### 5 6100, 57763 #### [facility] [address] [place] [address], [facility] IMMATURE GRANS 0.8 % Normal 0.0-1.[address] [facility] Comment on above: Order Comment: No: D o not add to previous draw Performed By: #### 5 6100, 76186 #### [facility] [address] [place] [address], [facility] Lymphocytes (Bld) [#/Vol] 1.3 10*3/uL Normal 1.2-4.0 [facility] Comment on above: Order Comment: No: D o not add to previous draw Performed By: #### 5 6100, 50053 #### [facility] [address] [place] [address], [facility] Lymphocytes/100 WBC (Bld) 17.8 % Low 20.0-45.0 [facility] Comment on above: Order Comment: No: D o not add to previous draw Performed By: #### 5 6100, 09998 #### [facility] [address] [place] [address], [facility] MCH (RBC) [Entitic mass] 30.7 pg Normal 27.0-33.0 [facility] Comment on above: Order Comment: No: D o not add to previous draw Performed By: #### 5 610, 51719 #### [facility] [address] [place] [id number], [facility] MCHC (RBC) [Mass/Vol] 32.7 g/dL Normal 32.0-35.0 [facility] Comment on above: Order Comment: No: D o not add to previous draw Performed By: #### 5 610, 78518 #### [facility] [address] [place] [address], [facility] MCV (RBC) [Entitic vol] 93.7 fL Normal 82.0-98.0 [facility] Comment on above: Order Comment: No: D o not add to previous draw Performed By: #### 5 610, 51909 #### [facility] [address] [place] [address], [facility] Monocytes (Bld) [#/Vol] 0.9 10*3/uL Normal 0.1-1.0 [facility] Comment on above: Order Comment: No: D o not add to previous draw Performed By: #### 5 610, 61664 #### [facility] [address] [place] [address], [facility] MONOS 13.3 % High 5.0-12.0 [facility] Comment on above: Order Comment: No: D o not add to previous draw Performed By: #### 5 6100, 69360 #### [facility] [address] [place] [address], [facility] Neutrophils/100 WBC (Bld) 63.2 % Normal 40.0-72.0 [facility] Comment on above: Order Comment: No: D o not add to previous draw Performed By: #### 5 610, 60010 #### [facility] [address] [place] [address], [facility] Nucleated RBC/100 WBC (Bld) [Ratio] 0 % Normal 0-0 [facility] Comment on above: Order Comment: No: D o not add to previous draw Performed By: #### 5 610, 08147 #### [facility] [address] [place] [id number], [place] PLAT CNT 240 10*3/uL Normal 150-400 [facility] Comment on above: Order Comment: No: D o not add to previous draw Performed By: #### 5 6101, 17004 #### [facility] [address] [place] [address], [facility] RBC (Bld) [#/Vol] 2.38 10*6/uL Low 4.20-5.70 [facility] Comment on above: Order Comment: No: D o not add to previous draw Performed By: #### 5 6101, 70281 #### [facility] [address] [place] [address], [facility] WBC (Bld) [#/Vol] 7.09 10*3/uL Normal 4.00-10.60 [facility] Comment on above: Order Comment: No: D o not add to previous draw Performed By: #### 5 6101, 08579 #### [facility] [address] [facility] HEMOGLOBINon 10-01-2018 Hemoglobin (Bld) [Mass/Vol] 7.5 g/dL Low 13.0-17.0 [facility] Comment on above: Order Comment: No: D o not add to previous draw Performed By: #### 5 6101, 01763 #### [facility] [address] *BLOOD CULTUREon 09-30-2018 Bacteria identified Cx Nom (Bld) Clinical Report: (D) Specimen: BLOOD CULTURE Collected: 09/30/2018 00:20 Status: Final Last Updated: 10/05/2018 06:16 (1) 0018 rt hand CULT RES (Final) No Growth Day 5 Normal [facility] Comment on above: Order Comment: No: D o not add to previous draw Performed By: #### 5 6101, 74205 #### [facility] [address] Bacteria identified Cx Nom (Bld) Clinical Report: (D) Specimen: BLOOD CULTURE Collected: 09/30/2018 00:20 Status: Final Last Updated: 10/05/2018 06:16 (1) 0015 Lt hand CULT RES (Final) No Growth Day 5 Normal [facility] Comment on above: Order Comment: No: D o not add to previous draw Performed By: #### 5 0608 #### [facility] [address] [place] [address], [facility] BASIC METABOLIC PANELon 04-2 Calcium [Mass/Vol] 8.2 mg/dL Low 8.6-10.3 [facility] Comment on above: Order Comment: No: D o not add to previous draw Performed By: #### 5 0608 #### [facility] [address] [place] [address], [place] Chloride [Moles/Vol] 109 mmol/L High 98-107 [facility] Comment on above: Order Comment: No: D o not add to previous draw Performed By: #### 5 0608 #### [facility] [address] [place] [address], [place] CO2 [Moles/Vol] 25 mmol/L Normal 21-31 [facility] Comment on above: Order Comment: No: D o not add to previous draw Performed By: #### 5 0608 #### [facility] [address] [place] [address], [place] Creatinine [Mass/Vol] 0.55 mg/dL Low 0.70-1.30 [facility] Comment on above: Order Comment: No: D o not add to previous draw Performed By: #### 5 0608 #### [facility] [address] [place] [address], [place] GFR/1.73 sq M predicted among blacks MDRD (S/P/Bld) [Vol rate/Area] mL/min/{1.73_m2} Normal >60 [facility] Comment on above: Order Comment: No: D o not add to previous draw Performed By: #### 5 0608 #### [facility] [address] [place] [address], [facility] GFR/1.73 sq M predicted among non-blacks MDRD (S/P/Bld) [Vol rate/Area] mL/min/{1.73_m2} Normal >60 [facility] Comment on above: Order Comment: No: D o not add to previous draw Performed By: #### 5 0608 #### [facility] [address] [place] [address], [facility] Glucose [Mass/Vol] 102 mg/dL High 70-100 [facility] Comment on above: Order Comment: No: D o not add to previous draw Performed By: #### 5 0608 #### [facility] [address] [place] [address], [facility] Potassium [Moles/Vol] 3.2 mmol/L Low 3.5-5.1 [facility] Comment on above: Order Comment: No: D o not add to previous draw Performed By: #### 5 0608 #### [facility] [address] [place] [address], [facility] Sodium [Moles/Vol] 141 mmol/L Normal 136-145 [facility] Comment on above: Order Comment: No: D o not add to previous draw Performed By: #### 5 0608 #### [facility] [address] [place] [address], [facility] Urea nitrogen [Mass/Vol] 23 mg/dL Normal 7-25 [facility] Comment on above: Order Comment: No: D o not add to previous draw Performed By: #### 5 0608 #### [facility] [address] [place] [id number], [facility] CBC COMPLETE BLOOD COUNTon 0 - Erythrocyte distribution width (RBC) [Ratio] 16.0 % High 11.5-15.0 [facility] Comment on above: Order Comment: No: D o not add to previous draw Performed By: #### 5 0608 #### [facility] [address] [place] [address], [facility] Hematocrit (Bld) [Volume fraction] 24.0 % Low 39.0-50.0 [facility] Comment on above: Order Comment: No: D o not add to previous draw Performed By: #### 5 0608 #### [facility] [address] [place] [address], [facility] Hemoglobin (Bld) [Mass/Vol] 7.8 g/dL Low 13.0-17.0 [facility] Comment on above: Order Comment: No: D o not add to previous draw Performed By: #### 5 0608 #### [facility] [address] [facility] [place] [address], [facility] MCH (RBC) [Entitic mass] 30.5 pg Normal 27.0-33.0 [facility] Comment on above: Order Comment: No: D o not add to previous draw Performed By: #### 5 0608 #### [facility] [address] [place] [address], [facility] MCHC (RBC) [Mass/Vol] 32.5 g/dL Normal 32.0-35.0 [facility] Comment on above: Order Comment: No: D o not add to previous draw Performed By: #### 5 0608 #### [facility] [address] [place] [place] [address], [facility] MCV (RBC) [Entitic vol] 93.8 fL Normal 82.0-98.0 [facility] Comment on above: Order Comment: No: D o not add to previous draw Performed By: #### 5 0608 #### [facility] [address] [place] [place] [address], [facility] Nucleated RBC/100 WBC (Bld) [Ratio] 0 % Normal 0-0 [facility] Comment on above: Order Comment: No: D o not add to previous draw Performed By: #### 5 0608 #### [facility] [address] [facility] [place] [address], [facility] PLAT CNT 203 10*3/uL Normal 150-400 [facility] Comment on above: Order Comment: No: D o not add to previous draw Performed By: #### 5 0608 #### [facility] [address] [place] [address], [facility] RBC (Bld) [#/Vol] 2.56 10*6/uL Low 4.20-5.70 [facility] Comment on above: Order Comment: No: D o not add to previous draw Performed By: #### 5 0608 #### [facility] [address] [facility] [place] [address], [facility] WBC (Bld) [#/Vol] 8.93 10*3/uL Normal 4.00-10.60 [facility] Comment on above: Order Comment: No: D o not add to previous draw Performed By: #### 5 0608 #### [facility] [address] HEMOGLOBINon 09-30-2018 Hemoglobin (Bld) [Mass/Vol] 7.8 g/dL Low 13.0-17.0 [facility] Comment on above: Order Comment: No: D o not add to previous draw Performed By: #### 5 0608 #### [facility] [address] [facility] [place] [address], [facility] MAGNESIUM BLOODon 09-30-2018 Magnesium [Mass/Vol] 2.0 mg/dL Normal 1.9-2.7 [facility] Comment on above: Order Comment: No: D o not add to previous draw Performed By: #### 5 6101, 32311 #### [facility] [address] [place] [address], [facility] Magnesium [Mass/Vol] 1.8 mg/dL Low 1.9-2.7 [facility] Comment on above: Order Comment: No: D o not add to previous draw Performed By: #### 5 0608 #### [place] [address], [facility] PORTABLE CHEST 1 VIEWon 09-03 PORTABLE CHEST 1 VIEW [facility] Department of Radiology [address] [place] [id number] ======== Patient Name: JERMAINE CHILD : 1950 Sex: M Age: Race: White Pt. Location: [id number] Patient Status: I Ordered Date: 09/29/2018 10:25:00 PM Completed Date: 09/29/2018 10:48 PM Requesting Provider: ION JOHNSON Attending Provider: JEFFREY ASENCIO Report Copy To: Signs & Symptoms: Fever History: Patient history not available Comments: R/O Atelectasis Exam: PORTABLE CHEST 1 VIEW ======== PORTABLE CHEST 1 VIEW 09/29/2018 10:48 PM EDT SIGNS AND SYMPTOMS: Fever TECHNOLOGIST COMMENTS: fever QUESTION FOR THE RADIOLOGIST: R/O Atelectasis PROTOCOL: AP(PA) view was obtained. COMPARISON: September 25 FINDINGS: Heart is upper limits normal in size. These time unremarkable. Lungs free of infiltrates or effusions. IMPRESSION: No acute cardiac or pulmonary pathology noted. Electronically signed by:Paz Gaines. Transcribed by: [email or web address], User Resident: Electronically Signed by: PAZ GAINES @ 09/30/2018 07:15 AM Normal [facility] Comment on above: Order Comment: No: D o not add to previous draw POTASSIUM BLOODon 09-30-2018 Potassium [Moles/Vol] 3.7 mmol/L Normal 3.5-5.1 [facility] Comment on above: Order Comment: No: D o not add to previous draw Performed By: #### 5 6101, 45586 #### [facility] [address] [place] [address], [facility] URINALYSIS REFLEXon 10-01-19 19 Appearance (U) CLEAR Normal CLEAR [facility] Comment on above: Order Comment: No: D o not add to previous draw Performed By: #### 5 0608 #### [facility] [address] [place] [address], [place] Bilirubin [Mass/Vol] Negative Normal NEGATIVE [facility] Comment on above: Order Comment: No: D o not add to previous draw Performed By: #### 5 0608 #### [facility] [address] [place] [address], [place] BLOOD Negative Normal NEGATIVE [facility] Comment on above: Order Comment: No: D o not add to previous draw Performed By: #### 5 0608 #### [facility] [address] [place] [address], [place] Color (U) YELLOW Normal YELLOW [facility] Comment on above: Order Comment: No: D o not add to previous draw Performed By: #### 5 0608 #### [facility] [address] [place] [address], [place] Glucose [Mass/Vol] Negative Normal NEGATIVE [facility] Comment on above: Order Comment: No: D o not add to previous draw Performed By: #### 5 0608 #### [facility] [address] [place] [address], [place] KETONE Negative Normal NEGATIVE [facility] Comment on above: Order Comment: No: D o not add to previous draw Performed By: #### 5 0608 #### [facility] [address] [place] [address], [facility] LEUK ROSALIO Negative Normal NEGATIVE [facility] Comment on above: Order Comment: No: D o not add to previous draw Performed By: #### 5 0608 #### [facility] [address] [place] [address], [facility] MICRO NOT DONE negative chemical reactions unless requested in original order Normal [facility] Comment on above: Order Comment: No: D o not add to previous draw Performed By: #### 5 0608 #### [facility] [address] [facility] [place] [address], [facility] Nitrite Ql (U) Negative Normal NEGATIVE [facility] Comment on above: Order Comment: No: D o not add to previous draw Performed By: #### 5 0608 #### [facility] [address] [facility] [place] [address], [facility] pH (Bld) 8.0 Normal 5.0-8.0 [facility] Comment on above: Order Comment: No: D o not add to previous draw Performed By: #### 5 0608 #### [facility] [address] [facility] [place] [address], [facility] Protein (U) [Mass/Vol] Negative Normal NEGATIVE [facility] Comment on above: Order Comment: No: D o not add to previous draw Performed By: #### 5 0608 #### [facility] [address] [facility] [place] [address], [facility] SPEC GRAV 1.020 Normal 1.015-1.020 [facility] Comment on above: Order Comment: No: D o not add to previous draw Performed By: #### 5 0608 #### [facility] [address] [place] [address], [facility] BASIC METABOLIC PANELon 04-2 Calcium [Mass/Vol] 8.3 mg/dL Low 8.6-10.3 [facility] Comment on above: Order Comment: No: D o not add to previous draw Performed By: #### 3 0, 14038, 88695 #### [facility] [address] [place] [address], [place] Chloride [Moles/Vol] 109 mmol/L High 98-107 [facility] Comment on above: Order Comment: No: D o not add to previous draw Performed By: #### 3 0, 18916, 55460 #### [facility] [address] [place] [address], [place] CO2 [Moles/Vol] 23 mmol/L Normal 21-31 [facility] Comment on above: Order Comment: No: D o not add to previous draw Performed By: #### 3 5199, 88552, 49463 #### [facility] [address] [place] [address], [place] Creatinine [Mass/Vol] 0.52 mg/dL Low 0.70-1.30 [facility] Comment on above: Order Comment: No: D o not add to previous draw Performed By: #### 3 5199, 23555, 22364 #### [facility] [address] [place] [address], [place] GFR/1.73 sq M predicted among blacks MDRD (S/P/Bld) [Vol rate/Area] mL/min/{1.73_m2} Normal >60 [facility] Comment on above: Order Comment: No: D o not add to previous draw Performed By: #### 3 5199, 02268, 35564 #### [facility] [address] [place] [address], [place] GFR/1.73 sq M predicted among non-blacks MDRD (S/P/Bld) [Vol rate/Area] mL/min/{1.73_m2} Normal >60 [facility] Comment on above: Order Comment: No: D o not add to previous draw Performed By: #### 3 5199, 16310, 27543 #### [facility] [address] [place] [id number], [facility] Glucose [Mass/Vol] 109 mg/dL High 70-100 [facility] Comment on above: Order Comment: No: D o not add to previous draw Performed By: #### 3 0, 01452, 30739 #### [facility] [address] [place] [id number], [facility] Potassium [Moles/Vol] 3.3 mmol/L Low 3.5-5.1 [facility] Comment on above: Order Comment: No: D o not add to previous draw Performed By: #### 3 0, 09161, 75496 #### [facility] [address] [place] [id number], [facility] Sodium [Moles/Vol] 141 mmol/L Normal 136-145 [facility] Comment on above: Order Comment: No: D o not add to previous draw Performed By: #### 3 5199, 05003, 41179 #### [facility] [address] [facility] [place] [address], [facility] Urea nitrogen [Mass/Vol] 23 mg/dL Normal 7-25 [facility] Comment on above: Order Comment: No: D o not add to previous draw Performed By: #### 3 5199, 94002, 81487 #### [facility] [address] [facility] [place] [address], [facility] CBC W/DIFFon 09-29-2018 ABS BASOPHILS 0.0 10*3/uL Normal 0.0-0.[address] [facility] Comment on above: Order Comment: No: D o not add to previous draw Performed By: #### 3 5199, 88362, 77985 #### [facility] [address] [place] [address], [facility] ABS IMM GRANS 0.0 10*3/uL Normal 0.0-0.[address] [facility] Comment on above: Order Comment: No: D o not add to previous draw Performed By: #### 3 0, 00640, 71893 #### [facility] [address] [place] [address], [place] ABS NEUTROPHILS 4.6 10*3/uL Normal 1.6-7.6 [facility] Comment on above: Order Comment: No: D o not add to previous draw Performed By: #### 3 5199, 92192, 28159 #### [facility] [address] [place] [address], [place] Basophils/100 WBC (Bld) 0.4 % Normal 0.0-1.0 [facility] Comment on above: Order Comment: No: D o not add to previous draw Performed By: #### 3 5199, 69492, 44929 #### [facility] [address] [place] [address], [place] Eosinophils (Bld) [#/Vol] 0.2 10*3/uL Normal 0.0-0.5 [facility] Comment on above: Order Comment: No: D o not add to previous draw Performed By: #### 3 5199, 49591, 55973 #### [facility] [address] [place] [address], [place] Eosinophils/100 WBC (Bld) 2.5 % Normal 0.0-6.0 [facility] Comment on above: Order Comment: No: D o not add to previous draw Performed By: #### 3 5199, 59068, 52449 #### [facility] [address] [place] [address], [place] Erythrocyte distribution width (RBC) [Ratio] 16.4 % High 11.5-15.0 [facility] Comment on above: Order Comment: No: D o not add to previous draw Performed By: #### 3 5199, 05870, 36331 #### [facility] [address] [place] [address], [place] Hematocrit (Bld) [Volume fraction] 21.1 % Low 39.0-50.0 [facility] Comment on above: Order Comment: No: D o not add to previous draw Performed By: #### 3 5199, 88601, 44214 #### [facility] [address] [place] [address], [facility] Hemoglobin (Bld) [Mass/Vol] 7.0 g/dL Low 13.0-17.0 [facility] Comment on above: Order Comment: No: D o not add to previous draw Performed By: #### 3 5199, , 50514 #### [facility] [address] [place] [place] [address], [facility] IMMATURE GRANS 0.4 % Normal 0.0-1.0 [facility] Comment on above: Order Comment: No: D o not add to previous draw Performed By: #### 3 5199, , 48696 #### [facility] [address] [facility] [place] [address], [facility] Lymphocytes (Bld) [#/Vol] 1.1 10*3/uL Low 1.2-4.0 [facility] Comment on above: Order Comment: No: D o not add to previous draw Performed By: #### 3 5199, , #### [facility] [address] [facility] [place] [address], [facility] Lymphocytes/100 WBC (Bld) 14.3 % Low 20.0-45.0 [facility] Comment on above: Order Comment: No: D o not add to previous draw Performed By: #### 3 5199, 68746, 02041 #### [facility] [address] [place] [id number], [facility] MCH (RBC) [Entitic mass] 30.7 pg Normal 27.0-33.0 [facility] Comment on above: Order Comment: No: D o not add to previous draw Performed By: #### 3 5199, 39001, 20354 #### [facility] [address] [place] [address], [facility] MCHC (RBC) [Mass/Vol] 33.2 g/dL Normal 32.0-35.0 [facility] Comment on above: Order Comment: No: D o not add to previous draw Performed By: #### 3 5199, , 38786 #### [facility] [address] [place] [id number], [facility] MCV (RBC) [Entitic vol] 92.5 fL Normal 82.0-98.0 [facility] Comment on above: Order Comment: No: D o not add to previous draw Performed By: #### 3 5199, , 01970 #### [facility] [address] [place] [address], [facility] Monocytes (Bld) [#/Vol] 1.4 10*3/uL High 0.1-1.0 [facility] Comment on above: Order Comment: No: D o not add to previous draw Performed By: #### 3 5199, , 83983 #### [facility] [address] [address], [facility] MONOS 19.5 % High 5.0-12.0 [facility] Comment on above: Order Comment: No: D o not add to previous draw Performed By: #### 3 5199, , 49682 #### [facility] [address] [place] [address], [facility] Neutrophils/100 WBC (Bld) 62.9 % Normal 40.0-72.0 [facility] Comment on above: Order Comment: No: D o not add to previous draw Performed By: #### 3 5199, 02307, 44769 #### [facility] [address] [place] [address], [facility] Nucleated RBC/100 WBC (Bld) [Ratio] 0 % Normal 0-0 [facility] Comment on above: Order Comment: No: D o not add to previous draw Performed By: #### 3 5200, 87523, 20335 #### [facility] [address] [place] [address], [facility] PLAT CNT 145 10*3/uL Low 150-400 [facility] Comment on above: Order Comment: No: D o not add to previous draw Performed By: #### 3 5200, 91361, 98369 #### [facility] [address] [place] [address], [facility] RBC (Bld) [#/Vol] 2.28 10*6/uL Low 4.20-5.70 [facility] Comment on above: Order Comment: No: D o not add to previous draw Performed By: #### 3 0, 62166, 46676 #### [facility] [address] [place] [address], [facility] WBC (Bld) [#/Vol] 7.33 10*3/uL Normal 4.00-10.60 [facility] Comment on above: Order Comment: No: D o not add to previous draw Performed By: #### 3 0, 74872, 90045 #### [facility] [address] [place] [address], [facility] HEMATOCRITon 09-29-2018 Hematocrit (Bld) [Volume fraction] 24.4 % Low 39.0-50.0 [facility] Comment on above: Order Comment: No: D o not add to previous draw Performed By: #### 5 0608 #### [facility] [address] [place] [address], [facility] HEMOGLOBINon 09-29-2018 Hemoglobin (Bld) [Mass/Vol] 8.1 g/dL Low 13.0-17.0 [facility] Comment on above: Order Comment: No: D o not add to previous draw Performed By: #### 5 0608 #### [facility] [address] MAGNESIUM BLOODon 09-29-2018 Magnesium [Mass/Vol] 1.7 mg/dL Low 1.9-2.7 [facility] Comment on above: Order Comment: Yes: Add to Previous draw if able Performed By: #### 3 5200, 15849, 51718 #### [facility] [address] [place] [address], [facility] RBC'S 1 UNITon 09-29-2018 CROSSMATCH INTERP 1 COMP Normal [facility] Comment on above: Order Comment: No: D o not add to previous draw Performed By: #### 5 0608 #### [facility] [address] [facility]. [address] PRODUCT CODE 1 E0336 Normal [facility] Comment on above: Order Comment: No: D o not add to previous draw Performed By: #### 5 0608 #### [facility] [address] [facility]. [address] PRODUCT STATUS 1 PT Normal The [facility] Comment on above: Order Comment: No: D o not add to previous draw Result Comment: Resu lt changed by IF on 09/29/2018 12:48. The previous value was XM. Result changed by IF on 09/30/2018 00:30. The previous value was IS. Performed By: #### 5 0608 #### [facility] [address] [facility]. [address] UNIT ABO 1 O Normal [facility] Comment on above: Order Comment: No: D o not add to previous draw Performed By: #### 5 0608 #### [facility] [address] [facility] [place] [place] [address], [facility] UNIT ID 1 [id number] Normal [facility] Comment on above: Order Comment: No: D o not add to previous draw Performed By: #### 5 0608 #### [facility] [address] [facility] [place] [place] [address], [place] UNIT RH 1 Positive Normal [facility] Comment on above: Order Comment: No: D o not add to previous draw Performed By: #### 5 0608 #### [facility] [address] [place] [address], [place] TYPE AND SCREENon 09-29-2018 ABO INTERPRETATION O Normal The [facility] Comment on above: Performed By: #### 3 0, 04597, 98209 #### [facility] [address] [place] [address], [place] RH INTERPRETATION Positive Normal [facility] Comment on above: Performed By: #### 3 5199, 95729, 25274 #### [facility] [address] [place] [address], [place] BASIC METABOLIC PANELon 09-03 Calcium [Mass/Vol] 8.0 mg/dL Low 8.6-10.3 [facility] Comment on above: Order Comment: No: D o not add to previous draw Performed By: #### 3 5199, 24804, 24724 #### [facility] [address] [place] [address], [place] Chloride [Moles/Vol] 107 mmol/L Normal 98-107 [facility] Comment on above: Order Comment: No: D o not add to previous draw Performed By: #### 3 5199, 52371, 26227 #### [facility] [address] [place] [address], [place] CO2 [Moles/Vol] 22 mmol/L Normal 21-31 The [facility] Comment on above: Order Comment: No: D o not add to previous draw Performed By: #### 3 5199, 98237, 82921 #### [facility] [address] [place] [address], [place] Creatinine [Mass/Vol] 0.64 mg/dL Low 0.70-1.30 [facility] Comment on above: Order Comment: No: D o not add to previous draw Performed By: #### 3 0, 11976, 19117 #### [facility] [address] [place] [address], [place] GFR/1.73 sq M predicted among blacks MDRD (S/P/Bld) [Vol rate/Area] mL/min/{1.73_m2} Normal >60 [facility] Comment on above: Order Comment: No: D o not add to previous draw Performed By: #### 3 5199, 45297, 03688 #### [facility] [address] [place] [address], [place] GFR/1.73 sq M predicted among non-blacks MDRD (S/P/Bld) [Vol rate/Area] mL/min/{1.73_m2} Normal >60 [facility] Comment on above: Order Comment: No: D o not add to previous draw Performed By: #### 3 5199, 84673, 84372 #### [facility] [address] [place] [address], [place] Glucose [Mass/Vol] 113 mg/dL High 70-100 [facility] Comment on above: Order Comment: No: D o not add to previous draw Performed By: #### 3 5199, 46499, 37334 #### [facility] [address] [place] [address], [place] Potassium [Moles/Vol] 3.6 mmol/L Normal 3.5-5.1 [facility] Comment on above: Order Comment: No: D o not add to previous draw Performed By: #### 3 5199, 98614, 99285 #### [facility] [address] [place] [address], [place] Sodium [Moles/Vol] 138 mmol/L Normal 136-145 [facility] Comment on above: Order Comment: No: D o not add to previous draw Performed By: #### 3 5199, 51990, 77269 #### [facility] [address] [place] [address], [place] Urea nitrogen [Mass/Vol] 34 mg/dL High 7-25 [facility] Comment on above: Order Comment: No: D o not add to previous draw Performed By: #### 3 5199, 63703, 95851 #### [facility] [address] [place] [address], [place] CBC COMPLETE BLOOD COUNTon 0 09-28-2018 Erythrocyte distribution width (RBC) [Ratio] 16.8 % High 11.5-15.0 [facility] Comment on above: Order Comment: No: D o not add to previous draw Performed By: #### 3 5199, 33760, 40050 #### [facility] [address] [place] [address], [place] Hematocrit (Bld) [Volume fraction] 22.9 % Low 39.0-50.0 [facility] Comment on above: Order Comment: No: D o not add to previous draw Performed By: #### 3 5199, 94020, 45941 #### [facility] [address] [place] [address], [place] Hemoglobin (Bld) [Mass/Vol] 7.4 g/dL Low 13.0-17.0 [facility] Comment on above: Order Comment: No: D o not add to previous draw Performed By: #### 3 5199, 66339, 81145 #### [facility] [address] [place] [address], [place] MCH (RBC) [Entitic mass] 30.5 pg Normal 27.0-33.0 [facility] Comment on above: Order Comment: No: D o not add to previous draw Performed By: #### 3 5199, 78037, 62827 #### [facility] [address] [place] [address], [place] MCHC (RBC) [Mass/Vol] 32.3 g/dL Normal 32.0-35.0 [facility] Comment on above: Order Comment: No: D o not add to previous draw Performed By: #### 3 5199, 44416, 82075 #### [facility] [address] [place] [address], [facility] MCV (RBC) [Entitic vol] 94.2 fL Normal 82.0-98.0 [facility] Comment on above: Order Comment: No: D o not add to previous draw Performed By: #### 3 5199, 33335, 61676 #### [facility] [address] [place] [address], [facility] Nucleated RBC/100 WBC (Bld) [Ratio] 0 % Normal 0-0 [facility] Comment on above: Order Comment: No: D o not add to previous draw Performed By: #### 3 5199, , 27149 #### [facility] [address] [facility] [place] [address], [facility] PLAT CNT 115 10*3/uL Low 150-400 [facility] Comment on above: Order Comment: No: D o not add to previous draw Performed By: #### 3 5199, 02838, 69305 #### [facility] [address] [place] [address], [facility] RBC (Bld) [#/Vol] 2.43 10*6/uL Low 4.20-5.70 [facility] Comment on above: Order Comment: No: D o not add to previous draw Performed By: #### 3 5199, 62039, 66102 #### [facility] [address] [place] [address], [place] WBC (Bld) [#/Vol] 8.56 10*3/uL Normal 4.00-10.60 [facility] Comment on above: Order Comment: No: D o not add to previous draw Performed By: #### 3 5199, 19788, 02340 #### [facility] [address] [place], [place] [id number] [place] [address] HEMOGLOBINon 09-28-2018 Hemoglobin (Bld) [Mass/Vol] 7.6 g/dL Low 13.0-17.0 [facility] Comment on above: Order Comment: No: D o not add to previous draw Performed By: #### 3 5200, 21116, 58701 #### [facility] [address] Operative Reporton 9 Operative Report MR#: [id number] I [facility] Pt. Name: Child Jermaine Room #: [id number] Discharge Date: Birthdate: 1950 OPERATIVE REPORT DATE OF SURGERY: 09/27/2018 SURGEON: Jose Ramon Oscar M.D. AIR EXPORT LOGISTICS MANAGER: 1. Tang Grewal MD. 2. Ariana Car M.D. PREOPERATIVE DIAGNOSIS: Left distal femur fracture. POSTOPERATIVE DIAGNOSIS: Left distal femur fracture. PROCEDURES PERFORMED: Open reduction and internal fixation of left distal femur with fiber graft application. ANESTHESIA: General. FLUIDS: As per Anesthesia records. ESTIMATED BLOOD LOSS: 550 mL. DRAINS: Hemovac x1. COMPLICATIONS: None. SPECIMENS: Bone biopsy x1. IMPLANTS: ITS distal femur 9-hole plate. EXPLANTS: None. OPERATIVE INDICATIONS: The patient is a 68-year-old male, who presented to our facility after a fall. He was found on imaging studies to have a left distal femur fracture. He was deemed an appropriate candidate to proceed to the operating room for left femur retrograde IM nail versus open reduction and internal fixation. Based on his preoperative imaging studies, we determined it prudent to proceed with distal femur plating. DESCRIPTION OF PROCEDURE: The patient was greeted in the preoperative holding area by the operating surgeon. The patient's left lower extremity was marked with the operating surgeon's initials. Informed consent was obtained from the patient's daughter and all questions were answered. Prophylactic antibiotics were administered. The patient was taken back to the operating theater and placed in the supine position on the operating table. The anesthesia was induced without complication. The left lower extremity was prepped and draped in normal sterile fashion. A time-out was performed confirming correct patient, correct procedure, and correct laterality. We began by making a large 18 cm longitudinal incision over the lateral aspect of the femur with a #10 blade. Hemostasis was achieved with electrocautery. The knife and a Bain used to elevate the soft tissues from the bone. At that point, we were able to visualize our distal femur fragments. We proceeded to clean the proximal and distal segments with a Bain and Bovie. We were satisfied with our exposure, we proceeded to gain our reduction with a combination of traction, internal rotation, and a slight varus 4. This was confirmed in both the AP and lateral planes with fluoroscopy. We were satisfied with our reduction, the distal femur ITS plate was applied and provisionally clamped. Again, the position was confirmed on fluoroscopy. We began by drilling, measuring, and filling the distal most locking hole of the plate. We then proceeded proximally to drill, measure, and fill with the appropriate cortical screw. We confirmed our reduction on fluoroscopy before proceeding to drill, measure, and fill with appropriate length screws. All distal locking holes as well as the 7 proximal-most holes. There was a small area of bone void, we then applied fiber-graft material. The wound was then copiously irrigated with Betadine and normal saline and closure was begun. The IT band was closed with a #1 suture, while the subcutaneous fat was closed with 0 Vicryl. The dermal layer was closed with 3-0 Vicryl suture and the skin with 3-0 Novafil. The wounds were cleansed and a sterile dry dressing was applied and an incisional wound VAC was applied with Adaptic of the contact layer. This was connected to the suction and found to appropriately sucked down. It was connected to the wound VAC, which was set at 125 mmHg continuous suction. Please note, prior to closure of the IT band, we placed a Hemovac coming out proximally. The patient was awoken from anesthesia without complication and transferred to the PACU in stable condition. POSTOPERATIVE PLAN: The patient will be nonweightbearing to the left lower extremity. He will keep his incisional wound VAC until the time of discharge from the hospital. He will follow up in clinic in 10-14 days after discharge. If there are any concerns before then, he may call the clinic or go to the nearest emergency department. Dr. Oscar was present for all critical portions of the procedure and otherwise immediately available to assist at all times. Electronically Signed by: Jose Ramon Oscar M.D. 09/28/2018 11:04 A Jose Ramon Oscar M.D. I was present for the jhaveri and critical portions and I was otherwise immediately available to assist. Date Dict: 09/27/2018/02:34 P/Ariana Car MD Date Trans: 09/28/2018 01:39 A/gary [id number] Normal [facility] BASIC METABOLIC PANELon 09-03 Calcium [Mass/Vol] 8.6 mg/dL Normal 8.6-10.3 [facility] Comment on above: Order Comment: No: D o not add to previous draw Performed By: #### 3 0, 19321, 35589 #### [facility] [address] [place] [address], [place] Chloride [Moles/Vol] 104 mmol/L Normal 98-107 [facility] Comment on above: Order Comment: No: D o not add to previous draw Performed By: #### 3 5199, 25227, 92672 #### [facility] [address] [place] [address], [place] CO2 [Moles/Vol] 27 mmol/L Normal 21-31 The [facility] Comment on above: Order Comment: No: D o not add to previous draw Performed By: #### 3 0, 09040, 59161 #### [facility] [address] [place] [address], [place] Creatinine [Mass/Vol] 0.73 mg/dL Normal 0.70-1.30 [facility] Comment on above: Order Comment: No: D o not add to previous draw Performed By: #### 3 0, 37938, 58848 #### [facility] [address] [place] [address], [place] GFR/1.73 sq M predicted among blacks MDRD (S/P/Bld) [Vol rate/Area] mL/min/{1.73_m2} Normal >60 [facility] Comment on above: Order Comment: No: D o not add to previous draw Performed By: #### 3 0, 59160, 02729 #### [facility] [address] [place] [address], [place] GFR/1.73 sq M predicted among non-blacks MDRD (S/P/Bld) [Vol rate/Area] mL/min/{1.73_m2} Normal >60 [facility] Comment on above: Order Comment: No: D o not add to previous draw Performed By: #### 3 5199, 51076, 87391 #### [facility] [address] [place] [address], [place] Glucose [Mass/Vol] 120 mg/dL High 70-100 [facility] Comment on above: Order Comment: No: D o not add to previous draw Performed By: #### 3 5199, 95736, 56688 #### [facility] [address] [place] [address], [place] Potassium [Moles/Vol] 3.6 mmol/L Normal 3.5-5.1 [facility] Comment on above: Order Comment: No: D o not add to previous draw Performed By: #### 3 5199, 31779, 37733 #### [facility] [address] [place] [address], [place] Sodium [Moles/Vol] 139 mmol/L Normal 136-145 [facility] Comment on above: Order Comment: No: D o not add to previous draw Performed By: #### 3 5199, 90320, 02130 #### [facility] [address] [place] [address], [place] Urea nitrogen [Mass/Vol] 40 mg/dL High 7-25 [facility] Comment on above: Order Comment: No: D o not add to previous draw Performed By: #### 3 0, 24440, 16125 #### [facility] [address] [place] [id number], [facility] CBC COMPLETE BLOOD COUNTon 0 - Erythrocyte distribution width (RBC) [Ratio] 13.0 % Normal 11.5-15.0 [facility] Comment on above: Order Comment: No: D o not add to previous draw Performed By: #### 3 5199, 08616, 99580 #### [facility] [address] [place] [address], [facility] Hematocrit (Bld) [Volume fraction] 29.3 % Low 39.0-50.0 [facility] Comment on above: Order Comment: No: D o not add to previous draw Performed By: #### 3 5199, 12405, 99695 #### [facility] [address] [place] [address], [facility] Hemoglobin (Bld) [Mass/Vol] 9.6 g/dL Low 13.0-17.0 [facility] Comment on above: Order Comment: No: D o not add to previous draw Performed By: #### 3 5199, 81926, 59568 #### [facility] [address] [place] [address], [place] MCH (RBC) [Entitic mass] 31.9 pg Normal 27.0-33.0 [facility] Comment on above: Order Comment: No: D o not add to previous draw Performed By: #### 3 5199, 12790, 50449 #### [facility] [address] [place] [address], [place] MCHC (RBC) [Mass/Vol] 32.8 g/dL Normal 32.0-35.0 [facility] Comment on above: Order Comment: No: D o not add to previous draw Performed By: #### 3 5199, 67812, 22195 #### [facility] [address] [place] [address], [facility] MCV (RBC) [Entitic vol] 97.3 fL Normal 82.0-98.0 [facility] Comment on above: Order Comment: No: D o not add to previous draw Performed By: #### 3 5200, 52385, 32766 #### [facility] [address] [place] [address], [facility] Nucleated RBC/100 WBC (Bld) [Ratio] 0 % Normal 0-0 [facility] Comment on above: Order Comment: No: D o not add to previous draw Performed By: #### 3 0, 49368, 45909 #### [facility] [address] [place] [address], [facility] PLAT CNT 154 10*3/uL Normal 150-400 [facility] Comment on above: Order Comment: No: D o not add to previous draw Performed By: #### 3 5199, 48075, 98677 #### [facility] [address] [place] [address], [facility] RBC (Bld) [#/Vol] 3.01 10*6/uL Low 4.20-5.70 [facility] Comment on above: Order Comment: No: D o not add to previous draw Performed By: #### 3 5199, 50582, 83509 #### [facility] [address] [place] [address], [facility] WBC (Bld) [#/Vol] 9.77 10*3/uL Normal 4.00-10.60 [facility] Comment on above: Order Comment: No: D o not add to previous draw Performed By: #### 3 5199, 91067, 42619 #### [facility] [address] [place] [address], [facility] FEMUR LEFT 2 VWSon 9 FEMUR LEFT 2 VWS [facility] Department of Radiology [address] [place] [id number] ======== Patient Name: JERMAINE CHILD : 1950 Sex: M Age: Race: White Pt. Location: [id number] Patient Status: I Ordered Date: 09/26/2018 10:20:00 AM Completed Date: 09/27/2018 01:22 PM Requesting Provider: JOSE RAMON OSCAR Attending Provider: JOSE RAMON OSCAR Report Copy To: Signs & Symptoms: Intra-op c-arm, ORIF left distal femur. History: Intra-op c-arm, ORIF left distal femur. Comments: LEFT RETROGRADE FEMORAL NAIL Exam: FEMUR LEFT 2 S ======== FEMUR LEFT 2 VWS 09/27/2018 1:22 PM EDT SIGNS AND SYMPTOMS: Intra-op c-arm, ORIF left distal femur. TECHNOLOGIST COMMENTS: Intra-op c-arm, ORIF left distal femur. DR. Oscar Fluoro Time: 26 sec. C-arm out at 1:15 pm QUESTION FOR THE RADIOLOGIST: LEFT RETROGRADE FEMORAL NAIL PROTOCOL: AP(PA) and Lateral views were obtained. COMPARISON: None FINDINGS: Soft tissues: Bones: Joints: IMPRESSION: Documentation Electronically signed by:Jass Hernandez. Transcribed by: [email or web address], User Resident: Electronically Signed by: JASS HERNANDEZ @ 09/27/2018 01:49 PM Normal [facility] Comment on above: Order Comment: LEFT RETROGRADE FEMORAL NAIL HEMOGLOBINon 09-27-2018 Hemoglobin (Bld) [Mass/Vol] 6.4 g/dL Low 13.0-17.0 [facility] Comment on above: Order Comment: No: D o not add to previous draw Performed By: #### 3 5200, 80980, [id number] #### [facility] [address] [place] [address], [facility] RBC'S 2 UNITSon 09-27-2018 CROSSMATCH INTERP 1 COMP Normal [facility] Comment on above: Order Comment: Hemog lobin < 7gm/dl Performed By: #### 3 5200, 44274, 27294 #### [facility] [address] [place] [address], [facility] CROSSMATCH INTERP 2 COMP Normal [facility] Comment on above: Order Comment: Hemog lobin < 7gm/dl Performed By: #### 3 0, 28323, 87134 #### [facility] [address] [place] [address], [facility] PRODUCT CODE 1 E0336 Normal [facility] Comment on above: Order Comment: Hemog lobin < 7gm/dl Performed By: #### 3 5200, 23252, 80088 #### [facility] [address] [place] [address], [facility] PRODUCT CODE 2 E0336 Normal [facility] Comment on above: Order Comment: Hemog lobin < 7gm/dl Performed By: #### 3 0, 13158, 04706 #### [facility] [address] [place] [address], [facility] PRODUCT STATUS 1 PT Normal [facility] Comment on above: Order Comment: Hemog lobin < 7gm/dl Result Comment: Resu lt changed by IF on 09/27/2018 22:44. The previous value was XM. Result changed by IF on 09/28/2018 02:00. The previous value was IS. Performed By: #### 3 0, 77537, 99390 #### [facility] [address] [place] [address], [facility] PRODUCT STATUS 2 PT Normal [facility] Comment on above: Order Comment: Hemog lobin < 7gm/dl Result Comment: Resu lt changed by IF on 09/27/2018 18:32. The previous value was XM. Result changed by IF on 09/28/2018 00:30. The previous value was IS. Performed By: #### 3 5200, 44214, 16121 #### [facility] [address] [place] [address], [facility] UNIT ABO 1 O Normal [facility] Comment on above: Order Comment: Hemog lobin < 7gm/dl Performed By: #### 3 5200, 73058, 83353 #### [facility] [address] [place] [address], [facility] UNIT ABO 2 O Normal The [facility] Comment on above: Order Comment: Hemog lobin < 7gm/dl Performed By: #### 3 0, 61350, 02809 #### [facility] [address] [place] [address], [facility] UNIT ID 1 [id number] Normal The [facility] Comment on above: Order Comment: Hemog lobin < 7gm/dl Performed By: #### 3 0, 64893, 03566 #### [facility] [address] [place] [address], [facility] UNIT ID 2 [id number]-* Normal [facility] Comment on above: Order Comment: Hemog lobin < 7gm/dl Performed By: #### 3 5200, 48369, 96126 #### [facility] [address] [place] [id number], [facility] UNIT RH 1 Positive Normal [facility] Comment on above: Order Comment: Hemog lobin < 7gm/dl Performed By: #### 3 5200, 30429, 30674 #### [facility] [address] UNIT RH 2 Positive Normal [facility] Comment on above: Order Comment: Hemog lobin < 7gm/dl Performed By: #### 3 5200, 35437, 73862 #### [facility] [address] [facility]. [address] APTTon 09-26-2018 aPTT Coag (Bld) [Time] 33.7 s Normal 25.0-35.0 [facility] Comment on above: Order Comment: No: D o not add to previous draw Result Comment: ALL RESULTS MUST BE INTERPRETED WITH RESPECT TO BLOOD DRAWING ARTIFACT OR DILUTION ERROR OF ANTICOAGULANT AT THE TIME OF SAMPLING. THE APTT SHOULD NOT BE USED TO MONITOR UNFRACTIONATED HEPARIN THERAPY, THIS LABORATORY NO LONGER HAS AN ESTABLISHED THERAPEUTIC RANGE BASED ON THE APTT. IT IS RECOMMENDED THAT THE UFH - HEPARIN ASSAY (ANTI-XA ACTIVITY) BE USED FOR THIS PURPOSE. Performed By: #### 3 5200, 70213, 27294 #### [facility] [address] [facility]. [address] CBC W/DIFFon 09-26-2018 ABS BASOPHILS 0.0 10*3/uL Normal 0.0-0.[address] [facility] Comment on above: Order Comment: No: D o not add to previous draw Performed By: #### 5 0103 #### [facility] [address] [facility] [place] [place] [address], [facility] ABS NEUTROPHILS 6.7 10*3/uL Normal 1.6-7.6 [facility] Comment on above: Order Comment: No: D o not add to previous draw Performed By: #### 5 0103 #### [facility] [address] [facility] [place] [place] [address], [facility] Basophils/100 WBC (Bld) 0.0 % Normal 0.0-1.0 [facility] Comment on above: Order Comment: No: D o not add to previous draw Performed By: #### 5 0103 #### [facility] [address] [facility] [place] [address], [facility] Eosinophils (Bld) [#/Vol] 0.0 10*3/uL Normal 0.0-0.5 [facility] Comment on above: Order Comment: No: D o not add to previous draw Performed By: #### 5 0103 #### [facility] [address] [place] [id number], [facility] Eosinophils/100 WBC (Bld) 0.0 % Normal 0.0-6.0 [facility] Comment on above: Order Comment: No: D o not add to previous draw Performed By: #### 5 3 #### [facility] [address] [place] [address], [facility] Erythrocyte distribution width (RBC) [Ratio] 13.1 % Normal 11.5-15.0 [facility] Comment on above: Order Comment: No: D o not add to previous draw Performed By: #### 5 3 #### [facility] [address] [place] [address], [facility] GIANT PLATELETS Present Normal [facility] Comment on above: Order Comment: No: D o not add to previous draw Performed By: #### 5 0103 #### [facility] [address] [place] [address], [facility] Hematocrit (Bld) [Volume fraction] 34.9 % Low 39.0-50.0 [facility] Comment on above: Order Comment: No: D o not add to previous draw Performed By: #### 5 0103 #### [facility] [address] [place] [address], [facility] Hemoglobin (Bld) [Mass/Vol] 11.2 g/dL Low 13.0-17.0 [facility] Comment on above: Order Comment: No: D o not add to previous draw Performed By: #### 5 0103 #### [facility] [address] [place] [address], [facility] Lymphocytes (Bld) [#/Vol] 0.6 10*3/uL Low 1.2-4.0 [facility] Comment on above: Order Comment: No: D o not add to previous draw Performed By: #### 5 0103 #### [facility] [address] [facility] [place] [address], [facility] Lymphocytes/100 WBC (Bld) 6.4 % Low 20.0-45.0 [facility] Comment on above: Order Comment: No: D o not add to previous draw Performed By: #### 5 0103 #### [facility] [address] [place] [address], [facility] MCH (RBC) [Entitic mass] 31.4 pg Normal 27.0-33.0 [facility] Comment on above: Order Comment: No: D o not add to previous draw Performed By: #### 5 3 #### [facility] [address] [place] [address], [facility] MCHC (RBC) [Mass/Vol] 32.1 g/dL Normal 32.0-35.0 [facility] Comment on above: Order Comment: No: D o not add to previous draw Performed By: #### 5 0103 #### [facility] [address] [facility] [place] [address], [facility] MCV (RBC) [Entitic vol] 97.8 fL Normal 82.0-98.0 [facility] Comment on above: Order Comment: No: D o not add to previous draw Performed By: #### 5 0103 #### [facility] [address] [place] [address], [facility] Monocytes (Bld) [#/Vol] 1.6 10*3/uL High 0.1-1.0 [facility] Comment on above: Order Comment: No: D o not add to previous draw Performed By: #### 5 3 #### [facility] [address] [place] [address], [facility] MONOS 18.2 % High 5.0-12.0 [facility] Comment on above: Order Comment: No: D o not add to previous draw Performed By: #### 5 0103 #### [facility] [address] [place] [address], [facility] Neutrophils/100 WBC (Bld) 75.4 % High 40.0-72.0 [facility] Comment on above: Order Comment: No: D o not add to previous draw Performed By: #### 5 0103 #### [facility] [address] [place] [address], [facility] Nucleated RBC/100 WBC (Bld) [Ratio] 0 % Normal 0-0 [facility] Comment on above: Order Comment: No: D o not add to previous draw Performed By: #### 5 0103 #### [facility] [address] [place] [address], [place] PLAT CNT 201 10*3/uL Normal 150-400 [facility] Comment on above: Order Comment: No: D o not add to previous draw Performed By: #### 5 0103 #### [facility] [address] [facility] [place] [address], [facility] RBC (Bld) [#/Vol] 3.57 10*6/uL Low 4.20-5.70 [facility] Comment on above: Order Comment: No: D o not add to previous draw Performed By: #### 5 0103 #### [facility] [address] [place] [address], [place] WBC (Bld) [#/Vol] 8.86 10*3/uL Normal 4.00-10.60 [facility] Comment on above: Order Comment: No: D o not add to previous draw Performed By: #### 5 0103 #### [facility] [address] [place] [address], [place] CT LOWER EXTREMITY WO CONTRA ST LEFTon 09-26-2018 CT LOWER EXTREMITY WO CONTRAST LEFT [facility] Department of Radiology [address] [place] [address] ======== Patient Name: JERMAINE CHILD : 1950 Sex: M Age: Race: White Pt. Location: [id number] Patient Status: I Ordered Date: 09/26/2018 10:45:00 AM Completed Date: 09/26/2018 12:16 PM Requesting Provider: TANG GREWAL Attending Provider: JEFFREY ASENCIO Report Copy To: Signs & Symptoms: Fracture History: Patient history not available Comments: R/O Fractures, pre op planning. rule out articular involvement Left knee Exam: CT LOWER EXTREMITY WO CONTRAST LEFT ======== CT LOWER EXTREMITY WO CONTRAST LEFT 09/26/2018 12:16 PM EDT SIGN AND SYMPTOMS: Fracture TECHNOLOGIST COMMENTS: Pt is s/p fall, pt c/o left knee pain and is not able to manipulate knee. QUESTIONS PER RADIOLOGIST: R/O Fractures, pre op planning. rule out articular involvement Left knee PROTOCOL: Axial CT images of the extremity were obtained without IV contrast. TECHNIQUE: Multidetector CT axial slices of the chest were obtained without IV contrast. Multiplanar reformats were performed and viewed on a separate workstation and reviewed to further define anatomy and possible pathology.Appropriate CT dose lowering techniques were utilized. COMPARISON: No prior FINDINGS: Comminuted fracture at the distal metadiaphyseal junction of the left femur with multiple fragments and multiple fracture planes extending deep into the metaphyseal region but not to the distal articular surface of the femur. His posterior medial angulation of the fracture. Fragments are displaced laterally and posteriorly. No large surrounding hematoma. Very severe degenerative changes in the joint especially in the medial joint space compartment. Prominent spurring. No patellar fracture. There is a small joint effusion. IMPRESSION: * Comminuted fracture distal metadiaphyseal junction of the femur with multiple fragments and fracture planes extending deep into the metaphyseal region but not to the articular surface. Displacement and angulation as described no other fractures noted. 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 Transcribed by: [email or web address], User Resident: Electronically Signed by: MALIK MELTON @ 09/26/2018 12:59 PM Normal [facility] Comment on above: Order Comment: R/O F ractures, pre op planning. rule out articular involvement Left knee HEMOGLOBIN A1Con 09-26-2018 HbA1c (Bld) [Mass fraction] 5.5 % Normal 4.0-6.0 [facility] Comment on above: Order Comment: No: D o not add to previous draw Performed By: #### 3 5200, 73322, 22618 #### [facility] [address] [place] [address], [facility] HbA1c (Bld) [Mass fraction] 111 mg/dL Normal 70-126 [facility] Comment on above: Order Comment: No: D o not add to previous draw Performed By: #### 3 5200, 92114, 94952 #### [facility] [address] [place] [address], [place] LIPID PROFILEon 09-26-2018 Cholesterol [Mass/Vol] 111 mg/dL Low 120-200 [facility] Comment on above: Result Comment: CHOL ESTEROL REFERENCE RANGE: 20 YEARS AND OLDER CARDIOVASCULAR RISK Less than 200 mg/dl Low Risk 200 to 239 mg/dl Borderline Risk 240 mg/dl and greater High Risk Performed By: #### 4 0213, 51463, 55081 #### [facility] [address] [place] [address], [facility] Cholesterol in HDL [Mass/Vol] 49 mg/dL Normal 23-92 [facility] Comment on above: Result Comment: Slig ht variation in normal range could be due to gender and/or age. HDL CHOLESTEROL REFERENCE RANGE: 20 years and older Cardiovascular Risk > or =60 mg/dL Desirable 40 TO 59 mg/dL Low Risk <40 mg/dL High Risk Performed By: #### 4 6413, 54762, 21604 #### [facility] [address] [place] [address], [place] Cholesterol in LDL [Mass/Vol] 44 mg/dL Normal 0-130 [facility] Comment on above: Result Comment: LDL IS A CALCULATION LDL IS ONLY VALID IF THE TRIG IS LESS THAN 400. Performed By: #### 4 6413, 03835, 09443 #### [facility] [address] [place] [address], [place] Cholesterol.total/C holesterol in HDL [Mass ratio] 2.3 {ratio} Normal .0-4.5 [facility] Comment on above: Performed By: #### 4 6413, 66078, 17320 #### [facility] [address] [place] [address], [place] NON-HDL CHOLESTEROL 62 mg/dL Normal [facility] Comment on above: Performed By: #### 4 6413, 18502, 34410 #### [facility] [address] [place] [address], [place] Triglyceride [Mass/Vol] 89 mg/dL Normal 40-149 [facility] Comment on above: Result Comment: TRIG LYCERIDE REFERENCE RANGE: 20 YEARS AND OLDER CARDIOVASCULAR RISK LESS THAN 150 mg/dl LOW RISK 150 TO 199 mg/dl BORDERLINE RISK 200 mg/dl AND GREATER HIGH RISK Performed By: #### 4 6413, 13309, 88874 #### [facility] [address] [place] [address], [place] VLDL CHOL 18 mg/dL Normal 0-40 [facility] Comment on above: Performed By: #### 4 6413, 06627, 94626 #### [facility] [address] [place] [address], [facility] MAGNESIUM BLOODon 09-26-2018 Magnesium [Mass/Vol] 2.0 mg/dL Normal 1.9-2.7 [facility] Comment on above: Order Comment: No: D o not add to previous draw Performed By: #### 4 6413, 34878, 94199 #### [address] [address], [facility] MRI BRAIN WO CONTRASTon 09-03 MRI BRAIN WO CONTRAST [facility] Department of Radiology [address] [place] [id number] ======== Patient Name: JERMAINE CHILD : 1950 Sex: M Age: Race: White Pt. Location: [facility] Patient Status: I Ordered Date: 09/25/2018 7:25:00 PM Completed Date: 09/26/2018 04:41 PM Requesting Provider: PRETYT VERDUZCO Attending Provider: PRETTY VERDUZCO Report Copy To: Signs & Symptoms: Other History: Patient history not available Comments: R/O Abscess Exam: MRI BRAIN WO CONTRAST ======== MRI BRAIN WO CONTRAST 09/26/2018 4:41 PM EDT SIGN AND SYMPTOMS: Left frontal lobe lesion on CT; further evaluation of left frontal lobe abnormality. QUESTION FOR RADIOLOGIST: R/O Abscess PROTOCOL: Images were obtained in the following sequences:3-plane localizer, DWI and axial GRE. COMPARISON: None. FINDINGS: Extra axial spaces: Age appropriate. Hemorrhage: None. Ventricular system: Commensurate with degree of diffuse cortical volume loss. Basal cisterns: Patent. Cerebral parenchyma: No abnormal diffusion restriction. Midline shift: None. Cerebellum: Unremarkable Brainstem: Unremarkable IMPRESSION: No evidence of acute ischemia. Left frontal lobe appears unremarkable given the abbreviated examination. Approved by:Moses Myles on 09/26/2018 4:59 PM EDT. I, Evgeny Cardoza, have reviewed the images and report and concur with these findings. Electronically signed by:Evgeny Cardoza. Transcribed by: [email or web address], User Resident: TASHA MYLES Electronically Signed by: EVGENY CARDOZA @ 09/26/2018 05:08 PM I personally read this/these film(s) with this resident Normal [facility] Comment on above: Order Comment: R/O A bscess PHOSPHORUS BLOODon 9 Phosphate [Mass/Vol] 3.4 mg/dL Normal 2.5-5.0 [facility] Comment on above: Order Comment: No: D o not add to previous draw Performed By: #### 3 5200, 31288, 56856 #### [facility] [address] PROTHROMBIN TIMEon 9 INR Coag (PPP) [Relative time] 1.18 {INR} High 0.91-1.16 [facility] Comment on above: Order Comment: No: D o not add to previous draw Result Comment: ACCC P RECOMMENDED INR FOR WARFARIN THERAPY ------ ------- CONDITION INR PROPHYLAXIS OF VENOUS THROMBOSIS 2-3 (HIGH-RISK SURGERY) TREATMENT OF VENOUS THROMBOSIS 2-3 TREATMENT OF PULMONARY EMBOLISM 2-3 PREVENTION OF SYSTEMIC EMBOLISM: 2-3 ACUTE MYOCARDIAL INFARCTION TISSUE HEART VALVES VALVULAR HEART DISEASE ATRIAL FIBRILLATION RECURRENT SYSTEMIC EMBOLISM MECHANICAL HEART VALVE 2.5-3.5 FROM: ORAL ANTICOAGULANTS. MECHANISM OF ACTION, CLINICAL EFFECTIVENESS, AND OPTIMAL THERAPEUTIC RANGE. CHEST 1995;108:231S-246S. Performed By: #### 3 5200, 47933, 92773 #### [facility] [address] [place] [address], [facility] PT Coag (PPP) [Time] 15.0 s High 12.3-14.8 [facility] Comment on above: Order Comment: No: D o not add to previous draw Result Comment: ALL RESULTS MUST BE INTERPRETED WITH RESPECT TO BLOOD DRAWING ARTIFACT OR DILUTION ERROR OF ANTICOAGULANT AT THE TIME OF SAMPLING. Performed By: #### 3 5200, 84657, 77156 #### [facility] [address] [facility]. [address] APTTon 09-25-2018 aPTT Coag (Bld) [Time] 32.9 s Normal 25.0-35.0 [facility] Comment on above: Order Comment: No: D o not add to previous draw Result Comment: ALL RESULTS MUST BE INTERPRETED WITH RESPECT TO BLOOD DRAWING ARTIFACT OR DILUTION ERROR OF ANTICOAGULANT AT THE TIME OF SAMPLING. THE APTT SHOULD NOT BE USED TO MONITOR UNFRACTIONATED HEPARIN THERAPY, THIS LABORATORY NO LONGER HAS AN ESTABLISHED THERAPEUTIC RANGE BASED ON THE APTT. IT IS RECOMMENDED THAT THE UFH - HEPARIN ASSAY (ANTI-XA ACTIVITY) BE USED FOR THIS PURPOSE. Performed By: #### 5 6101, 11866 #### [facility] [address] [facility] [place] [address], [facility] BASIC METABOLIC PANELon 09-03 Calcium [Mass/Vol] 8.5 mg/dL Low 8.6-10.3 [facility] Comment on above: Performed By: #### 3 5200, 68065, 76907 #### [facility] [address] [place] [address], [facility] Chloride [Moles/Vol] 108 mmol/L High 98-107 [facility] Comment on above: Performed By: #### 3 5199, 08653, 79117 #### [facility] [address] [place] [address], [place] CO2 [Moles/Vol] 26 mmol/L Normal 21-31 [facility] Comment on above: Performed By: #### 3 5199, , 55869 #### [facility] [address] [place] [address], [place] Creatinine [Mass/Vol] 0.75 mg/dL Normal 0.70-1.30 [facility] Comment on above: Performed By: #### 3 5199, 65118, 03850 #### [facility] [address] [place] [address], [place] GFR/1.73 sq M predicted among blacks MDRD (S/P/Bld) [Vol rate/Area] mL/min/{1.73_m2} Normal >60 [facility] Comment on above: Performed By: #### 3 5199, , 98389 #### [facility] [address] [place] [address], [place] GFR/1.73 sq M predicted among non-blacks MDRD (S/P/Bld) [Vol rate/Area] mL/min/{1.73_m2} Normal >60 [facility] Comment on above: Performed By: #### 3 5199, 13309, 69079 #### [facility] [address] [place] [address], [place] Glucose [Mass/Vol] 99 mg/dL Normal 70-100 [facility] Comment on above: Performed By: #### 3 5199, 50111, 34085 #### [facility] [address] [place] [address], [place] Potassium [Moles/Vol] 3.9 mmol/L Normal 3.5-5.1 [facility] Comment on above: Performed By: #### 3 5199, 00536, 34956 #### [facility] [address] [place] [address], [facility] Sodium [Moles/Vol] 142 mmol/L Normal 136-145 [facility] Comment on above: Performed By: #### 3 5200, 43192, 48605 #### [facility] [address] [place] [address], [facility] Urea nitrogen [Mass/Vol] 25 mg/dL Normal 7-25 [facility] Comment on above: Performed By: #### 3 5200, 22205, 52230 #### [facility] [address] [place] [address], [facility] CBC COMPLETE BLOOD COUNTon - Erythrocyte distribution width (RBC) [Ratio] 12.7 % Normal 11.5-15.0 [facility] Comment on above: Order Comment: No: D o not add to previous draw Performed By: #### 5 0608 #### [facility] [address] [place] [address], [facility] Hematocrit (Bld) [Volume fraction] 38.1 % Low 39.0-50.0 [facility] Comment on above: Order Comment: No: D o not add to previous draw Performed By: #### 5 0608 #### [facility] [address] [place] [address], [facility] Hemoglobin (Bld) [Mass/Vol] 12.3 g/dL Low 13.0-17.0 [facility] Comment on above: Order Comment: No: D o not add to previous draw Performed By: #### 5 0608 #### [facility] [address] [place] [address], [facility] MCH (RBC) [Entitic mass] 32.3 pg Normal 27.0-33.0 [facility] Comment on above: Order Comment: No: D o not add to previous draw Performed By: #### 5 0608 #### [facility] [address] [place] [address], [facility] MCHC (RBC) [Mass/Vol] 32.3 g/dL Normal 32.0-35.0 [facility] Comment on above: Order Comment: No: D o not add to previous draw Performed By: #### 5 0608 #### [facility] [address] [place] [id number], [facility] MCV (RBC) [Entitic vol] 100.0 fL High 82.0-98.0 [facility] Comment on above: Order Comment: No: D o not add to previous draw Performed By: #### 5 0608 #### [facility] [address] [facility] [place] [address], [facility] [facility] Nucleated RBC/100 WBC (Bld) [Ratio] 0 % Normal 0-0 [facility] Comment on above: Order Comment: No: D o not add to previous draw Performed By: #### 5 [id number] #### [facility] [address] [place] [address], [facility] PLAT CNT 176 10*3/uL Normal 150-400 [facility] Comment on above: Order Comment: No: D o not add to previous draw Performed By: #### 5 [id number] #### [facility] [address] [facility] [place] [place] [address], [facility] RBC (Bld) [#/Vol] 3.81 10*6/uL Low 4.20-5.70 [facility] Comment on above: Order Comment: No: D o not add to previous draw Performed By: #### 5 [id number] #### [facility] [address] [place] [id number], [facility] WBC (Bld) [#/Vol] 10.15 10*3/uL Normal 4.00-10.60 [facility] Comment on above: Order Comment: No: D o not add to previous draw Performed By: #### 5 [id number] #### [facility] [place], [place] [id number] [place] [address] CHEST AND LATERALon 09-26-19 19 CHEST AND LATERAL [facility] Department of Radiology [address] [place] [id number] ======== Patient Name: JERMAINE CHILD : 1950 Sex: M Age: Race: White Pt. Location: [facility] Patient Status: I Ordered Date: 09/25/2018 7:05:00 PM Completed Date: 09/25/2018 07:22 PM Requesting Provider: PRETTY VERDUZCO Attending Provider: PRETTY VERDUZCO Report Copy To: Signs & Symptoms: Pre-Op Evaluation History: Patient history not available Comments: Other Exam: CHEST AND LATERAL ======== CHEST AND LATERAL 09/25/2018 7:22 PM EDT SIGNS AND SYMPTOMS: Pre-Op Evaluation TECHNOLOGIST COMMENTS: s/p fall earlier today; patient transfer from [facility]. Unable to get history from patient due dementia. QUESTION FOR THE RADIOLOGIST: Other PROTOCOL: AP(PA) and Lateral views were obtained. COMPARISON: September 25, 2018 13:36 FINDINGS: Trachea is midline. Cardiomediastinal silhouette is within normal limits. Bilateral lungs costophrenic sulci are clear. No pneumothorax. Degenerative changes of thoracic spine. IMPRESSION: No acute process. No evidence of acute trauma. Approved by:Alejandro Cates on 09/26/2018 7:54 AM EDT. I, Larisa Ring, have reviewed the images and report and concur with these findings. Electronically signed by:Larisa Ring. Transcribed by: [email or web address], User Resident: ALEJANDRO CATES Electronically Signed by: LARISA RING @ 09/26/2018 06:22 PM I personally read this/these film(s) with this resident Normal [facility] Comment on above: Order Comment: Other PROTHROMBIN TIMEon 9 INR Coag (PPP) [Relative time] 1.18 {INR} High 0.91-1.16 [facility] Comment on above: Order Comment: No: D o not add to previous draw Result Comment: ACCC P RECOMMENDED INR FOR WARFARIN THERAPY ------ ------- CONDITION INR PROPHYLAXIS OF VENOUS THROMBOSIS 2-3 (HIGH-RISK SURGERY) TREATMENT OF VENOUS THROMBOSIS 2-3 TREATMENT OF PULMONARY EMBOLISM 2-3 PREVENTION OF SYSTEMIC EMBOLISM: 2-3 ACUTE MYOCARDIAL INFARCTION TISSUE HEART VALVES VALVULAR HEART DISEASE ATRIAL FIBRILLATION RECURRENT SYSTEMIC EMBOLISM MECHANICAL HEART VALVE 2.5-3.5 FROM: ORAL ANTICOAGULANTS. MECHANISM OF ACTION, CLINICAL EFFECTIVENESS, AND OPTIMAL THERAPEUTIC RANGE. CHEST 1995;108:231S-246S. Performed By: #### 5 [id number], [id number] #### [facility] [address] [place] [address], [facility] PT Coag (PPP) [Time] 15.0 s High 12.3-14.8 [facility] Comment on above: Order Comment: No: D o not add to previous draw Result Comment: ALL RESULTS MUST BE INTERPRETED WITH RESPECT TO BLOOD DRAWING ARTIFACT OR DILUTION ERROR OF ANTICOAGULANT AT THE TIME OF SAMPLING. Performed By: #### 5 [id number], [id number] #### [facility] [address] [place] [address], [facility] TROPONIN-Ion 09-25-2018 Troponin I.cardiac [Mass/Vol] 0.01 ng/mL Normal 0.00-0.04 [facility] Comment on above: Result Comment: REFE RENCE RANGES: 0.00 - 0.04 ng/ml NORMAL 0.05 - 0.50 ng/ml INDETERMINATE > 0.50 ng/ml CONSISTENT WITH AN M.I. Performed By: #### 3 [id number], [id number], [id number] #### [facility] [address] [place] [address], [facility] TYPE AND SCREENon 09-25-2018 ABO INTERPRETATION O Normal [facility] Comment on above: Performed By: #### 6 2586 #### [facility] [address] [facility] [place] [place] [address], [facility] RH INTERPRETATION Positive Normal [facility] Comment on above: Performed By: #### 6 [id number] #### [facility] [address] [facility] [place] [address], [facility] VITAMIN D 25-HYDROXYon 09-25 VITAMIN D 25-OH 51.2 ng/mL Normal 30.0-80.0 [facility] Comment on above: Result Comment: >80. 0 Toxicity possible Performed By: #### 3 5200, [id number], [id number] #### [facility] [address] [facility] [place] [place] [address], [facility] Encounters Encounter Date Encounter Type Care Provider Facility Start: 10-29-2022 End: 10-29-2022 ambulatory ROYAL HURTADO Facility:[facility] Start: 08-02-2022 End: 08-02-2022 ambulatory RAINE Vaz Facility:[facility] Start: 07-12-2022 ambulatory Virginia MAHARAJ Facility :[facility] Start: 07-11-2022 End: 07-12-[address] DESTINI DOWNEY Facility:[facility] Start: 12-13-2021 End: 12-14-[address] DESTINI DOWNEY Facility:[facility] Start: 09-25-2018 End: 10-01-2018 Evaluation and management of inpatient ANAS ELIF Facility:[facility] Procedures Date Procedure Procedure Detail Performing Clinician Start: 09-29-2018 Antibody screen ANAS RE NNO Comment on above: Performed By: #### 3 [id number], [id number], [id number] #### [facility] [address] Start: 09-27-2018 REPOSITION LEFT LOWE R FEMUR WITH INT FIX, OPEN APPROACH JOSE RAMON EBRAHEIM Start: 09-27-2018 SUPPLEMENT LEFT LOWE R FEMUR WITH SYNTH SUB, OPEN APPROACH JOSE RAMON EBRAHEIM Start: 09-27-2018 TRANSFUSE NONAUT RED BLOOD CELLS IN PERIPH VEIN, PERC ANAS RENNO Start: 09-25-2018 Antibody screen ANAS RE NNO Comment on above: Performed By: #### 6 2586 #### [facility] [address] Payers Date Payer Category Payer Medicaid [id number] 1958 Medicare [id number] 1950 Unknown [id number] 2.16.8 [id number] 1950 Unknown [id number] 2.16.8 [id number] 1950 Unknown [id number] 2.16.84 [id number] 1950 Unknown [id number] 2.16.84 [id number] 1950 Unknown [id number] 2.16.84 [id number] 1950 Unknown [id number] 2.16.84 [id number] Clinical Note 12-13-2021 Note Date & Type Note Facility 12-13-2021 Note PROCEDURE: CT CSPINE WO CON COMPARISON: 11/07/2021 HISTORY: Osteoarthritis TECHNIQUE: Axial, Coronal, and Sagittal CT images obtained without IV contrast. Dose reduction techniques were achieved by using automated exposure control and/or adjustment of mA and/or kV according to patient size and/or use of iterative reconstruction technique. FINDINGS: PARASPINAL AREA: Normal with no visible mass. DISCS: Moderate to severe multilevel disc space narrowing with disc collapse and endplate sclerosis C4-C5 C5-C6 and C6-C7 BONES: Normal alignment of the cervical vertebral bodies with no acute fracture or spondylolisthesis. Moderate to severe degenerative spondylosis. Moderate to severe diffuse facet osteoarthropathy. OTHER: Negative. IMPRESSION: Moderate to severe diffuse degenerative changes, grossly stable Electronically authenticated by: L[address] [place] Date: 2021-12-13 11:09 [facility] Summary Purpose Family History No Family History Records FoundNo Family History Records FoundNo Family History Records FoundNo Family History Records Found Advance Directives No Advanced Directives Records FoundNo Advanced Directives Records FoundNo Advanced Directives Records FoundNo Advanced Directives Records Found Hospital Course Note MR#: [id number] [facility] Pt. Name: Jermaine Child Admitted: 09/25/2018 Discharged: 10/01/2018 Date of : 1950 Physician: Kassandra Damico MD DISCHARGE SUMMARY ADDENDUM: The patient was scheduled to discharge on 09/30/2018, but the patient was unable to leave secondary to placement issues. The patient was discharged on 10/01/2018 in stable medical condition to [facility], and he will follow up as mentioned above. Electronically Signed by: Kassandra Damico MD 10/04/2018 09:14 A Kassandra Damico MD I have reviewed this discharge summary and confirmed the resident's documentation. Please note that there may be additional documentation from me. Date Dict: 10/03/2018/03:57 P/Porter White CNP Date Trans: 10/04/2018 05:12 A/gary [id number] Additional Source Comments (unrecognized sect ion and content) No Status Records FoundNo Status Records FoundNo Status Records FoundNo Status Records Found INFORMATION SOURCE (unrecogn ized section and content) DATE CREATED AUTHOR 01/10/2019 [facility] DATE CREATED AUTHOR AUTHOR'S ORGANIZ ATION 06/28/2021 [facility] DATE CREATED AUTHOR AUTHOR'S ORGANIZ ATION [facility]20[facility] DATE CREATED AUTHOR AUTHOR'S ORGANIZ ATION 11/10/2022 [facility] FOR RECORDS PERTAINING TO PATIENTS WHO ARE OR HAVE BEEN ENROLLED IN A CHEMICAL DEPENDENCY/SUBSTANCEABUSE PROGRAM, SOME INFORMATION MAY BE OMITTED. This clinical summary was aggregated from multiple sources. Caution should be exercised in using it in the provision of clinical care. This summary normalizes information from multiple sources, and as a consequence, information in this document may materially change the coding, format and clinical context of patient data. In addition, data may be omitted in some cases. CLINICAL DECISIONS SHOULD BE BASED ON THE PRIMARY CLINICAL RECORDS. [facility]. provides no warranty or guarantee of the accuracy or completeness of information in this document.
[2023-11-13 10:14] VITALS: PULSE 86; O2SAT 92
[2023-11-13] MEDS: IPRATROPIUM/ALBUTEROL SULFATE 3 ML AMPUL.NEB IH (10:14)
--- NOTE | 2023-11-13 12:53 | PC.NURSE ---
Report called to Bambis and daughter updated on plan to incorporate hospice
[2023-11-13 13:19] VITALS: PULSE 71; O2SAT 98
--- NOTE | 2023-11-13 19:38 | ED_ITS ---
HPI HPI - General Adult General Chief complaint: Shortness of Breath/Dyspnea Stated complaint: CHOKING Time Seen by Provider: 11/13/23 09:33 Source: caregiver Mode of arrival: ambulance Limitations: no limitations History of Present Illness HPI narrative: Patient is a 73-year-old male who is presenting from nursing facility secondary to possible aspiration. Patient is a DNR CC.Patient is reportedly supposed to have thickened liquids orSome type of diet altercationTo help prevent aspiration, but patient does not follow ordersAt times. It is unknown what patient could have aspirated liquid or food aviles. senior living reported that patient oxygen levels was in the low 80s And he was having coughing spells at the nursing facility.And EMS arrived, patient's oxygen was in the mid 90s, he was in no respiratory distress.When patient arrived to the ER, he would intermittently cough, and only moan, make different noises and grunts. Patient is not blue, not cyanotic, patient looks ok. Patient does not answer questions appropriately.This is his normal baseline.Patient has history of dementia.No other acute concerns that we were made aware of from custodial or EMS staff. All systems are negative except as noted/marked. All systems reviewed and otherwise negative. Nurses note and vital signs reviewed and patient is not hypoxic In the ER. General: The patient appears in no apparent distress. Patient is resting comfortably on cart. Patient is not toxic, lethargic, or listless. Patient will intermittently grunt, moan, make loud noises. Patient is intermittently having coughing spells. When I walk into the room patient coughed up several moderate size amounts of clear sputum. Patient has not had any vomiting. Skin: Warm, dry, no pallor noted. There is no rash noted. No petechiae, purpura. Head: Normocephalic, atraumatic Eye: Normal conjunctiva, no drainage, EOMI. PERRL Ears, Nose, Mouth, and Throat: oral mucosa is dry. Posterior pharynx shows chronic cobblestoning, clear secretions intrasinus drainage noted. Nares patent. Mouth without vesicles. Cardiovascular: Regular Rate and Rhythm, no murmur, gallop, rub Respiratory: Patient is in no distress, no accessory muscle use, lungs are clear to auscultation, no wheezing, rales or rhonchi Back: non-tender, no CVA tenderness bilaterally to percussion. No CT LS midline pain GI: no tenderness to palpation, no masses appreciated. No rebound, guarding, or rigidity noted. No distention Musculoskeletal: Patient has full range of motion of all of the extremities, no motor, sensory, or focal neurological deficits Neurological: A&O x1,Person, normal speech Psychiatric: Cooperative Related Data Home Medications ?Medication ?Instructions ?Recorded ?Confirmed acetaminophen 500 mg capsule 1,000 mg PO Q4H PRN fever or pain 11/26/22 11/26/22 atorvastatin 10 mg tablet (Lipitor) 10 mg PO DAILY 11/26/22 11/26/22 buspirone 30 mg tablet 30 mg PO BID 11/26/22 11/26/22 clomipramine 50 mg capsule 50 mg PO BID 11/26/22 11/26/22 (Anafranil) divalproex 500 mg tablet,delayed 500 mg PO BID 11/26/22 11/26/22 release (Depakote) duloxetine 20 mg capsule,delayed 20 mg PO DAILY 11/26/22 11/26/22 release duloxetine 30 mg capsule,delayed 30 mg PO DAILY 11/26/22 11/26/22 release (Cymbalta) hyoscyamine sulfate 0.125 mg 0.125 mg PO Q6H 11/26/22 11/26/22 tablet (Levsin) levetiracetam 1,000 mg tablet 1,000 mg PO BID 11/26/22 11/26/22 (Keppra) lorazepam 1 mg tablet 1 mg PO Q8H PRN anxiety 11/26/22 11/26/22 losartan 50 mg tablet (Cozaar) 50 mg PO DAILY 11/26/22 11/26/22 lumateperone 42 mg capsule 42 mg PO DAILY 11/26/22 11/26/22 (Caplyta) morphine 20 mg/5 mL (4 mg/mL) oral 7.5 mg PO Q6H PRN pain 11/26/22 11/26/22 solution pantoprazole 40 mg tablet,delayed 40 mg PO DAILY 11/26/22 11/26/22 release (Protonix) sertraline 100 mg tablet (Zoloft) 100 mg PO DAILY 11/26/22 11/26/22 Allergies Allergy/AdvReac Type Severity Reaction Status Date / Time No Known Drug Allergies Allergy Verified 01/20/23 22:08 Opioid HPI Opioid Management Most Recent Opioid Data: Last Pain Scale 3 11/06/23 10:03 PFSH PFSH Social History Smoking status: Former smoker Exam Constitutional Vital Signs, click to edit/add: Last Vital Signs Temp 98.7 F 11/13/23 09:27 Pulse 71 11/13/23 13:19 Resp 16 11/13/23 13:19 BP 166/86 H 11/13/23 09:27 Pulse Ox 98 11/13/23 13:19 O2 Del Method Room Air 11/13/23 13:19 Course Vital Signs Vital signs: Vital Signs Temperature 98.7 F 11/13/23 09:27 Pulse Rate 87 11/13/23 09:27 Respiratory Rate 20 11/13/23 09:27 Blood Pressure 166/86 H 11/13/23 09:27 Pulse Oximetry 98 11/13/23 09:27 Oxygen Delivery Method Room Air 11/13/23 09:27 Temperature 98.7 F 11/13/23 09:27 Pulse Rate 71 11/13/23 13:19 Respiratory Rate 16 11/13/23 13:19 Blood Pressure 166/86 H 11/13/23 09:27 Pulse Oximetry 98 11/13/23 13:19 Oxygen Delivery Method Room Air 11/13/23 13:19 Medical Decision Making MDM Narrative Medical decision making narrative: Patient was observed for several hours in the ER. Patient is never been hypoxic.Patient was trying to get out of bed several times, security was called.When I walked into the room to perform HPI and physical exam, patient had 3 moderate-sized episodes of clear secretions. Patient has had no retractions. Patient is been in no distress. Chest x-ray showed no obvious signs of aspiration to upper middle lobes. Patient had bilateral lower lobe atelectasis or pneumonia.Before possible aspiration, patient's had no fever, chills, cough, or any signs of pneumonia. Patient's case was discussed with Dr. Mary. He stated that patient is having a hospice evaluation either today or tomorrow.He agreed with not observing patient overnight, no additional blood work or lab testing, in light of patient is a DNR CC as well. Patient has had no difficulties in the ER, no hypoxia. No other acute concerns. Patient was observed for several hours. Patient will go back to nursing facility. Patient is reportedly DNR CC Discharge Plan Discharge Stand Alone Forms: Portal Instructions Chief Complaint: Shortness of Breath/Dyspnea Clinical Impression: Aspiration into airway Patient Disposition: Home, Self-Care Condition: Fair Prescriptions / Home Meds: No Action acetaminophen 500 mg capsule 1,000 mg PO Q4H PRN (Reason: fever or pain) clomipramine [Anafranil] 50 mg capsule 50 mg PO BID buspirone 30 mg tablet 30 mg PO BID Caplyta 42 mg capsule 42 mg PO DAILY Patient Comments: M,,W,,Sun,Sat losartan [Cozaar] 50 mg tablet 50 mg PO DAILY duloxetine [Cymbalta] 30 mg capsule,delayed release(DR/EC) 30 mg PO DAILY divalproex [Depakote] 500 mg tablet,delayed release (DR/EC) 500 mg PO BID duloxetine 20 mg capsule,delayed release(DR/EC) 20 mg PO DAILY levetiracetam [Keppra] 1,000 mg tablet 1,000 mg PO BID hyoscyamine sulfate [Levsin] 0.125 mg tablet 0.125 mg PO Q6H atorvastatin [Lipitor] 10 mg tablet 10 mg PO DAILY lorazepam 1 mg tablet 1 mg PO Q8H PRN (Reason: anxiety) morphine 20 mg/5 mL (4 mg/mL) solution 7.5 mg PO Q6H PRN (Reason: pain) pantoprazole [Protonix] 40 mg tablet,delayed release (DR/EC) 40 mg PO DAILY sertraline [Zoloft] 100 mg tablet 100 mg PO DAILY Print Language: Georgian Instructions: Aspiration Pneumonia (DC) Additional Instructions: Patient has no obvious signs of aspiration pneumonia at this time. It is thought that patient possibly aspirated on food or drink. Patient has spit up several times a lot of clear secretions. Patient had 1 albuterol breathing treatment. Patient has not ever been hypoxic for EMS or in the ER. Dr. Mary is aware, will be sending patient back to nursing facility for further evaluation. Patient is going to have a hospice visit and set up today or tomorrow per Dr. Mary Referrals: Physician,Non-Staff, MD [Primary Care Provider] - 1 week Discharge Date/Time: 11/13/23 13:21
== END 2023-11-13 13:21 | disposition home or self-care (01) ==
PROVIDERS: Emergency Provider Emergency Medicine
DX: T17.908A Unspecified foreign body in respiratory tract, part unspecified causing other injury, initial encounter (principal); W44.9XXA Unspecified foreign body entering into or through a natural orifice, initial encounter; Z66 Do not resuscitate; F03.90 Unspecified dementia, unspecified severity, without behavioral disturbance, psychotic disturbance, mood disturbance, and anxiety; Z87.891 Personal history of nicotine dependence
CPT/HCPCS: 71045; 94640; 99283